=== PATIENT | female | born 1960 | race Caucasian/White ===

== ENCOUNTER → 2020-11-08 16:37 | Outpatient (BNVA) | payer MEDICARE, SELFPAY | PROVIDERS: PCP Nurse Practitioner Family; Visit Provider Nurse Practitioner Family | DX: R30.0 Dysuria (principal); R82.90 Unspecified abnormal findings in urine; I10 Essential (primary) hypertension; E53.8 Deficiency of other specified B group vitamins; E55.9 Vitamin D deficiency, unspecified | CPT/HCPCS: 81003; 87077; 87086; 87184 ==

== ENCOUNTER → 2020-11-19 15:11 | Outpatient (BNVA) | payer MEDICARE, SELFPAY | PROVIDERS: PCP Nurse Practitioner Family; Visit Provider Family Medicine | DX: R30.0 Dysuria (principal); N20.0 Calculus of kidney; L40.50 Arthropathic psoriasis, unspecified; R39.9 Unspecified symptoms and signs involving the genitourinary system | CPT/HCPCS: 81003 ==

== ENCOUNTER 2020-11-23 06:00 | Outpatient (CLI) | payer MEDICARE, SELFPAY | END 2020-11-23 06:01 | disposition home or self-care (01) | LOC: LAB 08-18 15:08 | PROVIDERS: PCP Nurse Practitioner Family; Visit Provider Nurse Practitioner Family | DX: I10 Essential (primary) hypertension (principal); E55.9 Vitamin D deficiency, unspecified | CPT/HCPCS: 80053; 80061; 82306; 82607; 84443; 85025 ==

== ENCOUNTER → 2020-12-17 14:52 | Outpatient (BNVA) | payer MEDICARE, SELFPAY | PROVIDERS: PCP Nurse Practitioner Family; Visit Provider Nurse Practitioner Family | DX: R30.0 Dysuria (principal) | CPT/HCPCS: 81003 ==

== ENCOUNTER → 2021-01-11 14:05 | Outpatient (BNVA) | payer MEDICARE, SELFPAY | PROVIDERS: PCP Nurse Practitioner Family; Visit Provider Internal Medicine | DX: L40.50 Arthropathic psoriasis, unspecified (principal); Z11.59 Encounter for screening for other viral diseases; Z11.1 Encounter for screening for respiratory tuberculosis; M54.50 Low back pain, unspecified; M96.1 Postlaminectomy syndrome, not elsewhere classified; Z87.891 Personal history of nicotine dependence | CPT/HCPCS: 99204 ==

== ENCOUNTER 2021-01-12 12:47 | Outpatient (CLI) | payer MEDICARE, SELFPAY ==
--- NOTE | 2021-01-12 12:59 | XR_ITS ---
WS: [id number] LEFT FOOT: 2 VIEW(S) TECHNIQUE: AP and lateral. HISTORY: M25.50 - Pain in unspecified joint COMPARISON: None available. No acute fracture or dislocation. Normal tarsal/metatarsal alignment. Mild hallux valgus of the first metatarsophalangeal joint. Mild osteopenia. No erosions. XR/XR foot LT 2V [id number] IMPRESSION: Mild hallux valgus deformity. No erosions.
--- NOTE | 2021-01-12 12:59 | XR_ITS ---
WS: [id number] Lateral views of cervical spine in the flexion, extension and neutral positions. 01/12/2021 Clinical Data: L40.50 - Arthropathic psoriasis, unspecified Comparison: None. Findings: Osteoarthritis of the vertebral bodies from C2 through C7 is seen. There is a fusion of the disc spac e between C1 and C2. No compression fractures are noted. There is degenerative disc narrowing from C2 -3 through C6-C7. No prevertebral soft tissue swelling is seen. On flexion and extension there is mil d limitation of motion but no subluxation. XR/XR cervical spine fl/ex [id number] Impression: 1. Osteoarthritis and degenerative disc disease from C2 through C7. 2. Fusion of the C1-C2 vertebral bodies. 3. Slight limitation of motion on flexion and extension.
--- NOTE | 2021-01-12 12:59 | XR_ITS ---
WS: [id number] Right hand, 2 views, 01/12/2021 Clinical Data: L40.50 - Arthropathic psoriasis, unspecified Comparison: None. Findings: No new fractures or dislocations are seen. The soft tissues are unremarkable. There is osteoarthritic change at the base of the right first metacarpal and a flexion deformity of t he right first MCP joint. No periarticular calcifications are seen. There is diffuse demineralization of the bones of the right hand. There is a healed fracture of the distal right ulna. XR/XR hand RT 2V [id number] Impression: 1. Diffuse demineralization of the right hand. 2. Osteoarthritic change of the base of the right first metacarpal.
--- NOTE | 2021-01-12 12:59 | XR_ITS ---
WS: [id number] Lumbar spine, 3 views, 01/12/2021 Clinical Data: L40.50 - Arthropathic psoriasis, unspecified Comparison: None. Findings: Extensive posterior lumbar fusion with bilateral pedicle screws and connecting rods from L2 through S 1 is seen. There is artificial disc material at L2-L3, L3-L4 and L4-L5. The patient has had an anter ior fusion of L4-L5 with 4 oblique screws. There is also an anterior fusion at L5-S1 with bilateral screws and a plate. The transverse processes and SI joints are nonremarkable. Osteoarthritic spurring from T11 through L1 is noted. No compression fractures are seen. XR/XR lumbar spine 2-3V* [id number] Impression: 1. Extensive intact anterior and posterior lumbar fusion. 2. Osteoarthritis from T11 through L1 vertebral bodies.
--- NOTE | 2021-01-12 12:59 | XR_ITS ---
WS: [id number] Right foot, 2 views, 01/12/2021 Clinical Data: M25.50 - Pain in unspecified joint Comparison: None. Findings: No fractures or dislocations are seen. No bone destruction or erosion is noted. There is a bunion of the head of the right first metatarsal.No periarticular demineralization or calcifications are seen. There is a plantar spur. XR/XR foot RT 2V [id number] Impression: Bunion of the head of the right first metatarsal.
--- NOTE | 2021-01-12 12:59 | XR_ITS ---
WS: [id number] Left hand, 2 views, 01/12/2021 Clinical Data: L40.50 - Arthropathic psoriasis, unspecified Comparison: None. Findings: No new fractures or dislocations are seen. The soft tissues are unremarkable. There is a flexion deformity of the left first MCP joint. There is minimal osteoarthritis of the left second finger DIP joint. There is an old fracture of the distal left radius. Diffuse demineralizatio n of the bones of the left hand is seen. XR/XR hand LT 2V [id number] Impression: 1. Demineralization of the bones of the left hand. 2. Osteoarthritis of the DIP joint of the left second finger.
[2021-01-12 13:57] LABS: Basophils # 0.1 10^3/uL (0.0-0.1); Basophils % 0.8 %; Eosinophils # 0.4 10^3/uL (0.0-0.8); Eosinophils % 4.6 %; Hematocrit 45.2 % (37.0-47.0); Lymphocytes # 3.3 10^3/uL (0.8-4.8); Lymphocytes % 42.2 %; Mean Corpuscular HGB Conc 33.2 g/dL (30.0-36.0); Mean Corpuscular Hemoglobin 29.9 pg (28.0-34.0); Mean Corpuscular Volume 90.2 fl (81-99); Mean Platelet Volume 10.1 fL (7.4-10.4); Monocytes # 0.5 10^3/uL (0.2-0.9); Monocytes % 6.8 %; Neutrophils # 3.58 10^3/uL (1.8-7.7); Neutrophils % 45.3 %; Nucleated Red Blood Cells % 0 %; Platelet Count 265 10^3/cmm (130-400); Red Blood Count 5.01 10^6/uL (4.1-5.3); Red Cell Distribution Width 12.6 % (12.1-15.1); White Blood Count 7.9 10^3/uL (4.0-10.0)
[2021-01-12 14:25] LABS: Alanine Aminotransferase 30 U/L (0-33); Albumin Level 4.6 g/dL (3.5-5.2); Alkaline Phosphatase 82 IU/L (35-105); Anion Gap 17.7 (5-19); Aspartate Amino Transferase 23 U/L (0-32); Blood Urea Nitrogen 8 mg/dL (8-23); Carbon Dioxide 23 mmol/L (22-29); Chloride 103 mmol/L (98-107); Globulin 3.9 g/dL (1.3-4.6); Glomerular Filtration Rate 72.7 mL/min (90-130); Glucose 98 mg/dL (65-115); Osmolality Calculated 288 mOsm/kg (285-295); Potassium 3.7 mmol/L (3.5-5.1); Sodium 140 mmol/L (136-145); Total Bilirubin 0.4 mg/dL (0.15-1.2); Total Protein 8.5 g/dL (6.6-8.7)
[2021-01-12 14:41] LABS: Hepatitis B Core AB, Total Non-Reactive (Nonreactive); Hepatitis B Surface Antigen Non-Reactive (Nonreactive); Hepatitis C Virus Antibody Non-Reactive (Nonreactive)
[2021-01-14 15:23] LABS: Quantiferon Mitogen 8.99 IU/mL; Quantiferon Nil 0.02 IU/mL; Quantiferon Plus TB1 0.06 IU/mL; Quantiferon Plus TB2 0.07 IU/mL; Quantiferon TB Gold NEGATIVE (NEGATIVE)
== END 2021-01-12 12:48 | disposition home or self-care (01) ==
LOC: RAD 12:57
PROVIDERS: PCP Nurse Practitioner Family; Visit Provider Internal Medicine
DX: L40.50 Arthropathic psoriasis, unspecified (principal); M25.50 Pain in unspecified joint; Z11.59 Encounter for screening for other viral diseases; Z11.1 Encounter for screening for respiratory tuberculosis
CPT/HCPCS: 36415; 72040; 72100; 73120; 73620; 80053; 85025; 86480; 86704; 86803; 87340

== ENCOUNTER → 2021-02-23 11:03 | Outpatient (BNVA) | payer MEDICARE, SELFPAY | PROVIDERS: PCP Nurse Practitioner Family; Visit Provider Nurse Practitioner Family | DX: R30.0 Dysuria (principal); R82.90 Unspecified abnormal findings in urine; N30.01 Acute cystitis with hematuria; Z68.30 Body mass index [BMI] 30.0-30.9, adult | CPT/HCPCS: 81000; 87077; 87086; 87184 ==

== ENCOUNTER → 2021-03-08 15:01 | Outpatient (BNVA) | payer MEDICARE, SELFPAY | PROVIDERS: PCP Nurse Practitioner Family; Visit Provider Nurse Practitioner Family | DX: R30.0 Dysuria (principal) | CPT/HCPCS: 81000 ==

== ENCOUNTER → 2021-03-11 11:01 | Outpatient (BNVA) | payer MEDICARE, SELFPAY | PROVIDERS: PCP Nurse Practitioner Family; Visit Provider Nurse Practitioner Family | DX: M25.561 Pain in right knee (principal); M25.562 Pain in left knee; G89.29 Other chronic pain; M17.11 Unilateral primary osteoarthritis, right knee | CPT/HCPCS: 73562 ==

== ENCOUNTER → 2021-04-11 10:59 | Outpatient (BNVA) | payer MEDICARE, SELFPAY | PROVIDERS: PCP Nurse Practitioner Family; Visit Provider Anesthesiology Pain Medicine | DX: G89.29 Other chronic pain (principal); M47.812 Spondylosis without myelopathy or radiculopathy, cervical region; M96.1 Postlaminectomy syndrome, not elsewhere classified; M50.31 Other cervical disc degeneration, high cervical region; M25.561 Pain in right knee; M25.562 Pain in left knee; Z87.891 Personal history of nicotine dependence | CPT/HCPCS: 99205 ==

== ENCOUNTER → 2021-04-19 09:30 | Outpatient (BNVA) | payer MEDICARE, SELFPAY | PROVIDERS: PCP Nurse Practitioner Family; Visit Provider Family Medicine | DX: R30.0 Dysuria (principal); R82.90 Unspecified abnormal findings in urine; R31.9 Hematuria, unspecified | CPT/HCPCS: 81003; 87077; 87086; 87184 ==

== ENCOUNTER → 2021-04-25 11:55 | Outpatient (BNVA) | payer MEDICARE, SELFPAY | PROVIDERS: PCP Nurse Practitioner Family; Visit Provider Nurse Practitioner Family | DX: N39.0 Urinary tract infection, site not specified (principal); N20.2 Calculus of kidney with calculus of ureter | CPT/HCPCS: 81003; 87086 ==

== ENCOUNTER → 2021-04-27 11:47 | Outpatient (BNVA) | payer MEDICARE, SELFPAY | PROVIDERS: PCP Nurse Practitioner Family; Visit Provider Registered Nurse Neonatal Intensive Care | DX: Z20.822 Contact with and (suspected) exposure to COVID-19 (principal) | CPT/HCPCS: 87635 ==

== ENCOUNTER → 2021-05-16 14:20 | Outpatient (BNVA) | payer MEDICARE, SELFPAY | PROVIDERS: PCP Nurse Practitioner Family; Visit Provider Internal Medicine | DX: L40.50 Arthropathic psoriasis, unspecified (principal); M54.50 Low back pain, unspecified; M96.1 Postlaminectomy syndrome, not elsewhere classified; Z86.16 Personal history of COVID-19; Z87.891 Personal history of nicotine dependence | CPT/HCPCS: 99214 ==

== ENCOUNTER 2021-05-17 15:16 | Outpatient (CLI) | payer MEDICARE, SELFPAY ==
--- NOTE | 2021-05-17 15:20 | XR_ITS ---
WS: [id number] XR KUB [id number] REASON FOR EXAM: stones FINDINGS: Large amount of stool and gas in the colon. No calculi are identified in the region of the kidneys, ureter, or bladder. Extensive surgical instrumentation of the lumbar spine. XR/XR KUB [id number] IMPRESSION: No urinary tract calculi identified.
== END 2021-05-17 15:17 | disposition home or self-care (01) ==
LOC: RAD 15:20
PROVIDERS: PCP Nurse Practitioner Family; Visit Provider Urology
DX: N20.2 Calculus of kidney with calculus of ureter (principal)
CPT/HCPCS: 74018; 81003

== ENCOUNTER 2021-06-15 23:24 | Emergency (ER) | payer MEDICARE, SELFPAY ==
--- NOTE | 2021-06-15 23:39 | ED_ITS ---
HPI - URI/Sore Throat General: Chief Complaint: Shortness of Breath/Dyspnea Stated Complaint: Covid Symptoms Time Seen by Provider: 06/15/21 23:39 History of Present Illness: 60-year-old female comes in today with complaints of fatigue, epigastric abdominal discomfort, shortness of breath and cough. Patient has been ill since 29 May after being diagnosed with COVID-19. Patient reports continues to have absent taste but comes in today due to her increased abdominal discomfort. Patient does have a history of psoriasis, depression, recurrent UTI, obesity. Patient is presently on doxycycline. Patient appears mildly unwell but not toxic. Patient appears in no pain. Associated symptoms: Reports abdominal pain Review of Systems General: Reports: 10 or more systems reviewed and unremarkable except in HPI and below Resp: Reports: dyspnea GI: Reports: abdominal pain PFSH ED PFSH: Medical History (Updated 06/16/21 @ 01:11 by ROSSY Holden) Chronic cystitis Fibromyalgia Hypothyroidism Urolithiasis Surgical History History of appendectomy History of back surgery History of rotator cuff surgery Family History Father Diabetes Hyperlipidemia Mother , AT AGE 83 Cancer Social History Smoking and tobacco status: former smoker Alcohol intake: current Alcohol intake frequency: few times a week Alcohol type: beer and wine Marital status: Current occupational status: disabled History of recent travel: No Physical Exam Const: COMMON NORMALS: alert HENMT: COMMON NORMALS: normocephalic and Normal external nose present HEAD & SCALP: normocephalic NOSE: Normal external nose present Eye: COMMON NORMALS: Equal, round and reactive pupils present and EOMs intact bilaterally PUPIL: Yes Equal, round and reactive pupils present Resp: COMMON NORMALS: clear to auscultation bilaterally EFFORT & INSPECTIO N: Yes tachypneic AUSCULTATION: clear to auscultation bilaterally Cardio: COMMON NORMALS: regular rate and regular rhythm RATE: regular rate RHYTHM: regular rhythm GI: AUSCULTATION: Yes normoactive bowel sounds PALPATION: Yes Tenderness to palpation present (GI) (epigastric) : COMMON NORMALS: Yes no CVA tenderness BLADDER/KIDNEY EXAM: Yes no CVA tenderness Back/Pelvis: COMMON NORMALS: no CVA tenderness Extremity: COMMON NORMALS: no pedal edema Neuro: SENSORIUM/ORIENTATION: Yes alert Psych: COMMON NORMALS: cooperative Skin: COMMON NORMALS: no rashes or lesions noted GENERAL SKIN EXAM: no rashes or lesions noted Course Vital Signs: Vital signs: Vital Signs Temperature 98.8 F 06/15/21 23:46 Pulse Rate 72 06/15/21 23:41 Respiratory Rate 18 06/15/21 23:41 Blood Pressure 186/92 06/15/21 23:41 Pulse Oximetry 100 06/15/21 23:41 MDM - URI/Sore Throat Medical Decision Making 60-year-old female comes in today with complaints of epigastric discomfort and increased shortness of breath. Patient's been ill with COVID-19 since 29 May. Patient appears in no acute distress. Lungs are decreased in the bases. Skin is warm and dry. Patient has tenderness in epigastric region of the abdomen on palpation. Bowel sounds are present. Vital signs are normal exc ept for some elevation in blood pressure. Differential diagnosis includes pneumonia, COVID-19, pancreatitis, gastritis. Laboratory values noted a white count of 12,000, CMP was unremarkable, lipase was normal, D-dimer was elevated at 5.08. Chest x-ray noted mild left side basilar atelectasis. CTA was performed of the chest and abdomen, no PE was noted but groundglass opacities was noted on the CT of the chest suggesting a Covid type pneumonia, duodenitis was noted in the abdomen. We have patient has duodenitis may be due to her prolonged Covid illness, we will treat with pantoprazole. Patient will continue with her antibiotics as directed. Recommend drink plenty of fluids and follow-u p with primary care in 1 week for recheck. Patient reported understanding and agreed to plan. Lab Data : 06/16/21 00:01 06/16/21 00:01 Radiology Impressions Chest X-Ray 06/15/21 23:45 IMPRESSION: Mild left basilar atelectasis and/or pneumonia. Chest/Abdomen/Pelvis CT 06/16/21 00:30 IMPRESSION: 1. Mild geographic ground-glass opacities in the lungs bilaterally consistent with mild bilateral COVID-19 pneumonia versus other pneumonia. 2. Severe calcified coronary artery disease. 3. No pulmonary embolus or aortic dissection. IMPRESSION: Moderate bowel wall thickening in the 1st and 2nd portion of duodenum suggesting moderate primary duodenitis versus pancreatitis with secondary duodenitis. Laboratory Results WBC 12.3 10^3/uL (4.0-10.0) H 06/16/21 00:01 RBC 4.75 10^6/uL (4.1-5.3) 06/16/21 00:01 Hgb 13.9 g/dL (11.5-15.3) 06/16/21 00:01 Hct 42.4 % (37.0-47.0) 06/16/21 00:01 MCV 89.3 fl (81-99) 06/16/21 00:01 MCH 29.3 pg (28.0-34.0) 06/16/21 00:01 MCHC 32.8 g/dL (30.0-36.0) 06/16/21 00: RDW 13.8 % (12.1-15.1) 06/16/21 00:01 Plt Count 435 10^3/cmm (130-400) H 06/16/21 00:01 MPV 10.0 fL (7.4-10.4) 06/16/21 00:01 Neut % (Auto) 64.6 % 06/16/21 00:01 Lymph % (Auto) 26.3 % 06/16/21 00: Nobles % (Auto) 6.9 % 06/16/21 00: Eos % (Auto) 1.3 % 06/16/21 00:01 Baso % (Auto) 0.3 % 06/16/21 00:01 Neut # (Auto) 7.91 10^3/uL (1.8-7.7) H 06/16/21 00:01 Lymph # (Auto) 3.2 10^3/uL (0.8-4.8) 06/16/21 00:01 Nobles # (Auto) 0.9 10^3/uL (0.2-0.9) 06/16/21 00:01 Eos # (Auto) 0.2 10^3/uL (0.0-0.8) 06/16/21 00:01 Baso # (Auto) 0.0 10^3/uL (0.0-0.1) 06/16/21 00: Nucleated RBC % (auto) 0 % 06/16/21 00: Nucleated RBCs # 0.0 /100WBC 06/16/21 00:01 D-Dimer 5.08 ug/mIFEU (0-0.59) H 06/16/21 00:01 Sodium 140 mmol/L (136-145) 06/16/21 00: Potassium 4.1 mmol/L (3.5-5.1) 06/16/21 00: Chloride 103 mmol/L (98-107) 06/16/21 00: Carbon Dioxide 24 mmol/L (22-29) 06/16/21 00: Anion Gap 17.1 (5-19) 06/16/21 00: BUN 15 mg/dL (8-23) 06/16/21 00:01 Creatinine 0.9 mg/dL (0.5-0.9) 06/16/21 00: GFR Calculation 63.4 mL/min (90-130) L 06/16/21 00: Glucose 155 mg/dL (65-115) H 06/16/21 00: Calculated Osmolality 294 mOsm/kg (285-295) 06/16/21 00: Calcium 9.6 mg/dL (8.5-10.5) 06/16/21 00: Total Bilirubin 0.3 mg/dL (0.15-1.2) 06/16/21 00: AST 12 U/L (0-32) 06/16/21 00: ALT 20 U/L (0-33) 06/16/21 00: Alkaline Phosphatase 78 IU/L (35-105) 06/16/21 00: Troponin T Gen 5 ng/L 17 ng/L (0-10) H 06/16/21 00: Total Protein 6.6 g/dL (6.6-8.7) 06/16/21 00:01 Albumin 4.3 g/dL (3.5-5.2) 06/16/21 00: Globulin 2.3 g/dL (1.3-4.6) 06/16/21 00:01 Lipase 40 U/L (13-60) 06/16/21 00:01 Discharge Plan Discharge Patient Disposition: Home Clinical Impression: COVID-19, Duodenitis Condition: Stable Prescriptions: New pantoprazole 40 mg tablet,delayed release (DR/EC) 40 mg PO QAM 28 Days Qty: 28 0RF No Action amlodipine 5 mg tablet 5 mg PO DAILY 0RF cholecalciferol (vitamin D3) 25 mcg (1,000 unit) capsule 25 mcg PO DAILY 0RF diphenhydramine HCl [Allergy (diphenhydramine)] 25 mg capsule 25 mg PO TID PRN0RF fluocinonide 0.05 % cream 1 applic topical BID 0RF carboxymethylcellulose sodium [Refresh Tears] 0.5 % drops 1 drp ophthalmic (eye) BID 0RF apple cider vinegar PO PRN0RF mecobalamin (vitamin B12) 1,000 mcg tablet,disintegrating 1,000 mcg sublingual DAILY 0RF Rx Instructions: place tablet under tongue and allow to dissolve for at least30 secs before swallowing [employer] Autoinjector (3 Pack) 80 mg/mL auto-injector See Rx Instructions SUBCUT .COMPLEX Qty: 3 1RF Rx Instructions: starter dose two 80mg injection on same then, then 1 injection q 4 weeks LIRA BCUT; clobetasol 0.05 % cream 1 applic topical DAILY Qty: 60 0RF bupropion HCl 150 mg tablet sustained-release 12 hr 150 mg PO DAILY Qty: 90 1RF duloxetine 60 mg capsule,delayed release(DR/EC) 60 mg PO DAILY Qty: 90 1RF ibuprofen 800 mg tablet 800 mg PO Q8H PRN (Reason: pain) Qty: 90 0RF dexamethasone [Decadron] 6 mg tablet 6 mg PO DAILY Qty: 10 0RF silver sulfadiazine 1 % cream 1 applic topical DAILY Qty: 50 0RF Rx Instructions: apply a 1.5 mm thickness ondansetron HCl [Zofran] 4 mg tablet 4 mg PO Q8H Qty: 30 0RF tramadol 50 mg tablet 50 mg PO Q8H PRN (Reason: pain) Qty: 12 0RF metoprolol tartrate 25 mg tablet See Rx Instructions .ROUTE .COMPLEX Qty: 60 5RF Dose Instruction: TAKE ONE TABLET BY MOUTH TWICE A DAY Rx Instructions: TAKE ONE TABLET BY MOUTH TWICE A DAY levothyroxine 25 mcg capsule 25 mcg PO DAILY Qty: 30 5RF trazodone 100 mg tablet 100 mg PO DAILY Qty: 30 5RF pregabalin 50 mg capsule 50 mg PO TID Qty: 90 2RF cefuroxime axetil 500 mg tablet 500 mg PO BID Qty: 60 2RF doxycycline hyclate 100 mg capsule 100 mg PO BID Qty: 60 2RF Discharge Orders: Discharge ED (Routine); Ordered 06/16/21 Ordered By: Hector Jarvis Referrals: Yudith Mckeon NP [Primary Care Provider] - Discharge Diet: Advance as tolerated Discharge Activity: Increase activity as tolerated Patient Instructions: Duodenitis (ED) Activity Restrictions/Additional Instructions: Light diet. Avoid spicy, greasy, and acidic foods. Drink plenty of water with medication. Follow-up with primary care in 1 week for recheck. Return to ER for high fever greater than 100.4, increasing shortness of breath, or new concerns. Coding Level of Care Code ED [employer] for [employer] F[employer] Exam Comprehensive
[2021-06-15 23:41] VITALS: BP 186/92; PULSE 72; RESP 18; O2SAT 100; BMI 29.2
--- NOTE | 2021-06-15 23:45 | XRR_ITS ---
PROCEDURE INFORMATION: Exam: XR Chest Exam date and time: 06/15/2021 11:45 PM Age: 60 years old Clinical indication: Cough and shortness of breath; Prior surgery; Patient HX: Patient diagnosed with covid in April. C/O persistent cough with SOB. ; Additional info: Dyspnea TECHNIQUE: Imaging protocol: XR of the chest. Views: 1 view. COMPARISON: CR XR KUB [id number] 05/17/2021 3:27 PM FINDINGS: Lungs: Mild left basilar atelectasis and/or pneumonia. Pleural spaces: Unremarkable. No pleural effusion. No pneumothorax. Heart/Mediastinum: Unremarkable. No cardiomegaly. Bones/joints: Total right shoulder replacement. Other findings: Postoperative changes over the lumbar spine with metallic fixation and metallic artifact. XR/XR chest 1V portable [id number] IMPRESSION: Mild left basilar atelectasis and/or pneumonia.
[2021-06-15 23:46] VITALS: TEMP 37.1
[2021-06-16 00:08] LABS: Basophils % 0.3 %; Eosinophils # 0.2 10^3/uL (0.0-0.8); Eosinophils % 1.3 %; Hematocrit 42.4 % (37.0-47.0); Hemoglobin 13.9 g/dL (11.5-15.3); Lymphocytes # 3.2 10^3/uL (0.8-4.8); Lymphocytes % 26.3 %; Mean Corpuscular HGB Conc 32.8 g/dL (30.0-36.0); Mean Corpuscular Hemoglobin 29.3 pg (28.0-34.0); Mean Corpuscular Volume 89.3 fl (81-99); Monocytes # 0.9 10^3/uL (0.2-0.9); Monocytes % 6.9 %; Neutrophils # 7.91 10^3/uL (1.8-7.7); Neutrophils % 64.6 %; Nucleated Red Blood Cells % 0 %; Platelet Count 435 10^3/cmm (130-400); Red Blood Count 4.75 10^6/uL (4.1-5.3); Red Cell Distribution Width 13.8 % (12.1-15.1); White Blood Count 12.3 10^3/uL (4.0-10.0)
[2021-06-16 00:26] LABS: Troponin T (5th) Once 17 ng/L (0-10)
[2021-06-16 00:28] LABS: Alanine Aminotransferase 20 U/L (0-33); Albumin Level 4.3 g/dL (3.5-5.2); Alkaline Phosphatase 78 IU/L (35-105); Anion Gap 17.1 (5-19); Aspartate Amino Transferase 12 U/L (0-32); Blood Urea Nitrogen 15 mg/dL (8-23); Calcium 9.6 mg/dL (8.5-10.5); Carbon Dioxide 24 mmol/L (22-29); Chloride 103 mmol/L (98-107); Creatinine Clr Calc Pharmacy 62.6525; Globulin 2.3 g/dL (1.3-4.6); Glomerular Filtration Rate 63.4 mL/min (90-130); Glucose 155 mg/dL (65-115); Lipase 40 U/L (13-60); Osmolality Calculated 294 mOsm/kg (285-295); Potassium 4.1 mmol/L (3.5-5.1); Sodium 140 mmol/L (136-145); Total Bilirubin 0.3 mg/dL (0.15-1.2); Total Protein 6.6 g/dL (6.6-8.7)
[2021-06-16 00:29] LABS: D Dimer 5.08 ug/mIFEU (0-0.59)
--- NOTE | 2021-06-16 00:30 | CTR_ITS ---
PROCEDURE INFORMATION: Exam: CTA Chest With Contrast Exam date and time: 06/16/2021 12:30 AM Age: 60 years old Clinical indication: Abdominal pain; Generalized; Cough and shortness of breath; Other: N/a; Prior surgery; Surgery type: Total shoulder. Lumbar fusion. Appy. ; Patient HX: C/O cough with SOB and abd pain with nausea. Positive for covid in April of 2021. ; Additional info: Dyspnea, elevated d-dimer, abd pain TECHNIQUE: Imaging protocol: Computed tomographic angiography of the chest with contrast. 3D rendering (Not supervised by radiologist): MIP and/or 3D reconstructed images were created by the technologist. Radiation optimization: All CT scans at this facility use at least one of these dose optimization techniques: automated exposure control; mA and/or kV adjustment per patient size (includes targeted exams where dose is matched to clinical indication); or iterative reconstruction. Contrast material: OMNI 350; Contrast volume: 95 ml; Contrast route: INTRAVENOUS (IV); COMPARISON: CR (CHEST, ) 06/15/2021 11:50 PM RADIATION DOSE METRICS: Total DLP (mGy-cm): 1166.89 FINDINGS: Pulmonary arteries: No pulmonary embolus or aortic dissection. Aorta: Calcification of the thoracic aorta and/or great vessels consistent with atherosclerotic vessel disease. Lungs: Right discoid atelectasis and/or scarring. Mild geographic ground-glass opacities in the lungs bilaterally consistent with mild bilateral COVID-19 pneumonia versus other pneumonia. Pleural spaces: Unremarkable. No pneumothorax. No pleural effusion. Heart: Severe calcified coronary artery disease. Lymph nodes: Shotty mediastinal adenopathy which is within normal limits by CT criteria. Bones/joints: Unremarkable. No acute fracture. Soft tissues: Unremarkable. PROCEDURE INFORMATION: Exam: CT Abdomen And Pelvis With Contrast Exam date and time: 06/16/2021 12:30 AM Age: 60 years old Clinical indication: Abdominal pain; Generalized; Cough and shortness of breath; Other: N/a; Prior surgery; Surgery type: Total shoulder. Lumbar fusion. Appy. ; Patient HX: C/O cough with SOB and abd pain with nausea. Positive for covid in April of 2021. ; Additional info: Dyspnea, elevated d-dimer, abd pain TECHNIQUE: Imaging protocol: Computed tomography of the abdomen and pelvis with contrast. Radiation optimization: All CT scans at this facility use at least one of these dose optimization techniques: automated exposure control; mA and/or kV adjustment per patient size (includes targeted exams where dose is matched to clinical indication); or iterative reconstruction. Contrast material: OMNI 350; Contrast volume: 95 ml; Contrast route: INTRAVENOUS (IV); COMPARISON: CR (CHEST, ) 06/15/2021 11:50 PM RADIATION DOSE METRICS: Total DLP (mGy-cm): 1166.89 FINDINGS: Liver: Normal. No mass. Gallbladder and bile ducts: Normal. No calcified stones. No ductal dilation. Pancreas: See Stomach and bowel finding. Spleen: Normal. No splenomegaly. Adrenal glands: Normal. No mass. Kidneys and ureters: Normal. No hydronephrosis. Stomach and bowel: Moderate bowel wall thickening in the 1st and 2nd portion of duodenum suggesting moderate primary duodenitis versus pancreatitis with secondary duodenitis. Appendix: No evidence of appendicitis. Intraperitoneal space: Unremarkable. No free air. No significant fluid collection. Vasculature: Unremarkable. No abdominal aortic aneurysm. Lymph nodes: Unremarkable. No enlarged lymph nodes. Urinary bladder: Unremarkable as visualized. Reproductive: Unremarkable as visualized. Bones/joints: Postoperative changes over the lumbar spine with metallic fixation and metallic artifact. Soft tissues: Unremarkable. CT/CT angio chest w abd pel w con IMPRESSION: 1. Mild geographic ground-glass opacities in the lungs bilaterally consistent with mild bilateral COVID-19 pneumonia versus other pneumonia. 2. Severe calcified coronary artery disease. 3. No pulmonary embolus or aortic dissection. IMPRESSION: Moderate bowel wall thickening in the 1st and 2nd portion of duodenum suggesting moderate primary duodenitis versus pancreatitis with secondary duodenitis.
[2021-06-16] MEDS: iohexol 350 mg/mL 100 mL Btl IV (00:42)
[2021-06-16] MEDS: ondansetron 4 MG Tablet PO (00:54)
[2021-06-16] MEDS: pantoprazole 40 mg SDV IVP (02:09)
[2021-06-16 02:10] VITALS: BP 167/81; PULSE 81; RESP 18; TEMP 36.8; O2SAT 96
== END 2021-06-16 02:13 | disposition home or self-care (01) ==
PROVIDERS: Emergency Provider Nurse Practitioner Family; PCP Nurse Practitioner Family
DX: U07.1 COVID-19 (principal); K29.80 Duodenitis without bleeding; Z87.891 Personal history of nicotine dependence
CPT/HCPCS: 71045; 71275; 74177; 80053; 83690; 84484; 85025; 85378; 96374; 99283; C9113; Q0162; Q9967

== ENCOUNTER 2021-07-16 21:58 | Emergency (ER) | payer MEDICARE, SELFPAY ==
--- NOTE | 2021-07-16 22:00 | XRR_ITS ---
PROCEDURE INFORMATION: Exam: XR Left Wrist Exam date and time: 07/16/2021 10:11 PM Age: 60 years old Clinical indication: Injury or trauma; Fall; Blunt trauma (contusions or hematomas); Wrist; Left TECHNIQUE: Imaging protocol: XR Left wrist. Views: 3 or more views. COMPARISON: No relevant prior studies available. FINDINGS: Bones/joints: There are severely comminuted fractures of the distal radius and ulna with impaction and posterior displacement. There is slight apex anterior angulation. No dislocation. Minimal degenerative changes of the 1st CMC and 1st MCP joints. Soft tissues: Normal. Other findings: Three views submitted. XR/XR wrist LT min 3V* [id number] IMPRESSION: Distal radius and ulna fractures as described.
[2021-07-16 22:04] VITALS: BP 176/98; PULSE 86; RESP 26; TEMP 36.3; O2SAT 99; BMI 29.6
[2021-07-16 22:07] VITALS: BP 197/102; PULSE 79; RESP 18; O2SAT 97
[2021-07-16 22:17] VITALS: RESP 18
[2021-07-16] MEDS: morphine 4 mg/mL SDV 1 mL IM (22:17)
--- NOTE | 2021-07-16 22:21 | W.ED.EXTPRO ---
HPI - Extremity Problem General: Chief complaint: Extremity Injury, Upper Stated complaint: L wrist injury Time Seen by Provider: 07/16/21 22:01 Source: patient Mode of arrival: ambulatory Limitations: no limitations History of Present Illness: 60-year-old female who states she was skating at [employer] tonight and fell landed on her left arm outstretched. She has obvious deformity to left wrist has pain in that wrist. She denies hitting her head denies any injuries elsewhere denies pain elsewhere. She able to move her fingers. States her pain is currently a 6 out of 10. Associated symptoms: Deny chest pain, fever(s) or rash Review of Systems Const: Denies: fever(s), chills, body aches or change in appetite Eyes: Denies: blurry vision or eye discomfort ENMT: Denies: throat pain or dental pain Card: Denies: chest pain Resp: Denies: dyspnea GI: Denies: abdominal pain, nausea, vomiting or diarrhea : Denies: dysuria Musc: Reports: extremity pain Skin/Breast: Denies: rash Neuro: Denies: headache(s) Psych: Denies: depression Ludin/Lymph: Denies: easy bruising All/Imm: Denies: urticaria PFSH ED PFSH: Medical History Chronic cystitis Fibromyalgia Hypothyroidism Urolithiasis Surgical History History of appendectomy History of back surgery History of rotator cuff surgery Family History Father Diabetes Hyperlipidemia Mother , AT AGE 83 Cancer Social History Smoking and tobacco status: heavy tobacco smoker Alcohol intake: current Alcohol intake frequency: few times a week Alcohol type: beer and wine Marital status: Current occupational status: disabled History of recent travel: No Physical Exam Const: COMMON NORMALS: no acute distress, patient oriented x3 and healthy appearing HENMT: COMMON NORMALS: normocephalic and atraumatic HEAD & SCALP: normocephalic and atraumatic Eye: COMMON NORMALS: Equal, round and reactive pupils present and EOMs intact bilaterally PUPIL: Yes Equal, round and reactive pupils present Neck/C-Spine: COMMON NORMALS: full ROM and supple Chest: COMMONS NORMALS: normal inspection of the chest and normal palpation of entire chest wall Resp: COMMON NORMALS: normal respiratory effort, No retractions, No use of accessory muscles and clear to auscultation bilaterally AUSCULTATION: clear to auscultation bilaterally Cardio: COMMON NORMALS: regular rate, regular rhythm and No murmurs present (Cardio) RATE: regular rate RHYTHM: regular rhythm GI: COMMON NORMALS: Normal to inspection, nondistended, normoactive bowel sounds present, Soft to palpation, non-tender and no masses PALPATION: Yes Soft to palpation Extremity: NARRATIVE EXTREMITY EXAM: Obvious deformity to left wrist distal pulses sensation intact Neuro: COMMON NORMALS: patient oriented x3, moves all extremities and no focal motor deficits Psych: COMMON NORMALS: mental status grossly normal, Normal thought process present and cooperative THOUGHT PROCESS: Normal thought process present Skin: COMMON NORMALS: no rashes or lesions noted and no wounds GENERAL SKIN EXAM: no rashes or lesions noted Procedures Orthopedic Fracture Reduction Fracture #1: Time Out Performed: Yes Side: left Fracture Reduction Location: radius and ulna Analgesia: procedural sedation Technique: direct manipulation Post Reduction X-rays Demonstrate: anatomical reduction Post-reduction neuro exam: intact Post-reduction vascular exam: intact Splint Applied: Yes Patient Tolerated Procedure: well Orthopedic Splinting/Casting Injury #1: Side: left Upper Extremity Injury Location: wrist Upper Extremity Immobilizer: sugar tong splint Procedural Sedation Indication: fracture/dislocation reduction ASA Class: II Time of Last PO Intake: 19:00 Preparation: panel monitor applied and pulse oximeter IV Propofol dose (mg): 90 Patient Tolerated Procedure: well Complications: none Course Vital Signs: Vital signs: Vital Signs Temperature 97.4 F L 07/16/21 22:04 Pulse Rate 86 07/16/21 22:04 Respiratory Rate 18 07/16/21 22:17 Blood Pressure 176/98 07/16/21 22:04 Pulse Oximetry 99 07/16/21 22:04 MDM - Extremity (Nontraumatic) Medical Decision Making Patient presents here with a Colles' fracture from a fall patient was sedated and had it reduced with good alignment we will get follow with orthopedics she is prescribed [place] she is return if worsening. No other injuries noted Discharge Plan Discharge Patient Disposition: Home Clinical Impression: Fracture of wrist Qualifiers: Encounter type: initial encounter Fracture type: closed Laterality: left Qualified Code(s): S62.102A - Fracture of unspecified carpal bone, left wrist, initial encounter for closed fracture Condition: Stable Prescriptions: New hydrocodone-acetaminophen 5-325 mg tablet 1 tab PO Q6H PRN (Reason: pain) Qty: 14 0RF No Action amlodipine 5 mg tablet 5 mg PO DAILY 0RF cholecalciferol (vitamin D3) 25 mcg (1,000 unit) capsule 25 mcg PO DAILY 0RF diphenhydramine HCl [Allergy (diphenhydramine)] 25 mg capsule 25 mg PO TID PRN0RF fluocinonide 0.05 % cream 1 applic topical BID 0RF carboxymethylcellulose sodium [Refresh Tears] 0.5 % drops 1 drp ophthalmic (eye) BID 0RF apple cider vinegar PO PRN0RF mecobalamin (vitamin B12) 1,000 mcg tablet,disintegrating 1,000 mcg sublingual DAILY 0RF Rx Instructions: place tablet under tongue and allow to dissolve for at least30 secs before swallowing AddIn Social[employer] Autoinjector (3 Pack) 80 mg/mL auto-injector See Rx Instructions SUBCUT .COMPLEX Qty: 3 1RF Rx Instructions: starter dose two 80mg injection on same then, then 1 injection q 4 weeks SUBCUT; clobetasol 0.05 % cream 1 applic topical DAILY Qty: 60 0RF bupropion HCl 150 mg tablet sustained-release 12 hr 150 mg PO DAILY Qty: 90 1RF duloxetine 60 mg capsule,delayed release(DR/EC) 60 mg PO DAILY Qty: 90 1RF dexamethasone [Decadron] 6 mg tablet 6 mg PO DAILY Qty: 10 0RF silver sulfadiazine 1 % cream 1 applic topical DAILY Qty: 50 0RF Rx Instructions: apply a 1.5 mm thickness ondansetron HCl [Zofran] 4 mg tablet 4 mg PO Q8H Qty: 30 0RF tramadol 50 mg tablet 50 mg PO Q8H PRN (Reason: pain) Qty: 12 0RF ibuprofen 800 mg tablet 800 mg PO Q8H PRN (Reason: pain) Qty: 90 0RF metoprolol tartrate 25 mg tablet See Rx Instructions .ROUTE .COMPLEX Qty: 60 5RF Dose Instruction: TAKE ONE TABLET BY MOUTH TWICE A DAY Rx Instructions: TAKE ONE TABLET BY MOUTH TWICE A DAY levothyroxine 25 mcg capsule 25 mcg PO DAILY Qty: 30 5RF trazodone 100 mg tablet 100 mg PO DAILY Qty: 30 5RF pregabalin 50 mg capsule 50 mg PO TID Qty: 90 2RF cefuroxime axetil 500 mg tablet 500 mg PO BID Qty: 60 2RF doxycycline hyclate 100 mg capsule 100 mg PO BID Qty: 60 2RF Discharge Orders: Discharge ED (Routine); Ordered 07/16/21 Ordered By: Amarilys Rogers Referrals: Joseph Zhu DO [Physician] - 1-3 days Yudith Mckeon NP [Primary Care Provider] - Discharge Diet: Advance as tolerated Discharge Activity: Resume usual activity Patient Instructions: Wrist Fracture in Adults (ED) Coding Level of Care Code ED Import/Export Administrator for Nga Fwd Exam Comprehensive
[2021-07-16 22:37] VITALS: BP 173/91; PULSE 98; RESP 18; O2SAT 95
--- NOTE | 2021-07-16 22:45 | XRR_ITS ---
PROCEDURE INFORMATION: Exam: XR Left Wrist Exam date and time: 07/16/2021 10:48 PM Age: 60 years old Clinical indication: Other: Post reduction; Additional info: Post reductioin TECHNIQUE: Imaging protocol: XR Left wrist. Views: 1 or 2 views. COMPARISON: CR (UP EXM, ) 07/16/2021 10:11 PM FINDINGS: Bones/joints: Improved alignment after closed reduction of left distal radius and ulnar fractures with mild residual dorsal displacement and volar apex angulation. Bony demineralization and degenerative bony changes. Soft tissues: Left wrist soft tissue swelling and deformity. XR/XR wrist LT 2V [id number] IMPRESSION: Improved alignment after closed reduction of left distal radius and ulnar fractures with mild residual dorsal displacement and volar apex angulation.
--- NOTE | 2021-07-16 22:59 | PC.NURSE ---
Consent formed signed. Time out at 2242. Dr. Rogers, RT, Billy RN, Lorie RN and Alina MULTANI tech at bedside. 100mg of propofol given. Arm reduced. X-ray confirmed reduction. Sugartong splint placed.
[2021-07-16] MEDS: propofol 10 mg/mL SDV 20 mL 50 MG IVP ×2 (23:06→23:09)
[2021-07-16 23:07] VITALS: BP 145/83; PULSE 87; RESP 18; O2SAT 98
[2021-07-16] MEDS: HYDROcodone-acetaminophen 7.5-325 mg Tablet 1 TAB PO (23:16)
[2021-07-16] MEDS: HYDROcodone-acetaminophen 5-325 mg Tablet 2 TAB PO (23:16)
[2021-07-16 23:36] VITALS: BP 145/83; PULSE 87; RESP 18; O2SAT 98
--- NOTE | 2021-07-18 10:42 | DCPLANNER ---
Addendum entered by Kirsty Banks 08/02/21 20:55: Patient had a follow up appointment scheduled for 07.21.21 at ortho - patient did attend appointment. Addendum entered by Kirsty Banks 07/19/21 07:45: Patient has a follow up appointment scheduled for July at 10:30 with Justo GRESHAM at ortho. Clinic will contact patient with appointment information. Original Note: manager estate had message to schedule a follow up appointment for patient with ortho. manager estate sent patients information to the front staff at the ortho clinic for review. Patients information will be reviewed and printed. Clinic will call patient with appointment information.
== END 2021-07-16 23:39 | disposition home or self-care (01) ==
PROVIDERS: Emergency Provider Emergency Medicine; PCP Nurse Practitioner Family
DX: S52.532A Colles' fracture of left radius, initial encounter for closed fracture (principal); V00.121A Fall from non-in-line roller-skates, initial encounter; Y92.331 Roller skating rink as the place of occurrence of the external cause
CPT/HCPCS: 25605; 73100; 73110; 96372; 99152; 99284; J2270; J2704

== ENCOUNTER → 2021-07-21 10:31 | Outpatient (BNVA) | payer MEDICARE, SELFPAY | PROVIDERS: PCP Nurse Practitioner Family; Referring Provider Emergency Medicine; Visit Provider Physician Assistant | DX: S52.502A Unspecified fracture of the lower end of left radius, initial encounter for closed fracture (principal); S52.602A Unspecified fracture of lower end of left ulna, initial encounter for closed fracture; V00.128A Other non-in-line roller-skating accident, initial encounter | CPT/HCPCS: 73110; 99204; 99999 ==

== ENCOUNTER 2021-07-25 05:40 | Day surgery (SDC) | payer MEDICARE, SELFPAY ==
[2021-07-22 12:35] VITALS: BMI 30.7
[2021-07-25] VITALS (16 sets, daily range): BP systolic 148–184; BP diastolic 76–100; PULSE 62–92; RESP 14–20; TEMP 36.3–37.1; O2SAT 93–100
--- NOTE | 2021-07-25 | SCC_ITS ---
Procedure done: ORIF left extra articular distal radius fracture 21.5 seconds of fluoroscopic guidance, for a cumulative dose of 0.31 mGy, was provided to Dr. Zhu by the radiology department. C-arm images of the LEFT wrist were saved for the patient's permanent record. [facility]
--- NOTE | 2021-07-25 | XR_ITS ---
WS: [id number] Exam: XR wrist LT 2V [id number] Date/Time of Exam: 07/25/2021 12:00 AM Reason For Exam: fx left wrist Comparison 07/21/2021. AP and lateral intraoperative C-arm images of the left wrist are submitted. There is volar plate and screw fixation involving a fracture of the distal radial metaphysis. Alignme nt appears to be satisfactory for healing. There is also a comminuted fracture of the distal metaphys is of the ulna without significant angulation or displacement. XR/XR wrist LT 2V [id number] IMPRESSION: 1. Internal orthopedic fixation involving a fracture of the distal radius in sa tisfactory position for healing. 2. Comminuted fracture of the distal ulna without significant angulation or dis placement.
--- NOTE | 2021-07-25 06:43 | W.PM.OPSUD ---
Surgery/Procedure H&P Update DATE OF PROCEDURE: July 25, 2021 DATE H&P PERFORMED: 07/21/21 H&P UPDATE INFORMATION: I have reviewed H&P completed within last 30 days, I have examined patient prior to procedure and No changes to prior documentation PREOP DIAGNOSIS: Left distal radius fracture PLANNED PROCEDURE: Operation Date: 07/25/21 07:00 Proposed Procedures p ORIF Wrist ORIF Distal Radius 16975/s62.109a(Left) - Joseph Zhu DO
[2021-07-25] MEDS: scopolamine 1.5 Patch 1 PATCH TRANSDERMA (06:45)
[2021-07-25] MEDS: sodium chloride 0.9% 1,000 ML 30 ML IV (06:48)
--- NOTE | 2021-07-25 06:49 | P.ANESASSM_ITS ---
Pre-Anesthetic Assessment Height/Weight: Height 1.42 m Weight 62.142 kg Temp Pulse Resp BP Pulse Ox 97.4 F L 62 18 184/95 99 07/25/21 06:11 07/25/21 06:11 07/25/21 06:11 07/25/21 06:11 07/25/21 06:11 Preop Diagnosis: Left distal radius fracture Operation Date: 07/25/21 07:00 Proposed Procedures p ORIF Wrist ORIF Distal Radius 27960/s62.109a(Left) - Joseph Zhu DO Familial anesthetic complications: None Was Beta Elvia taken within 24 hours: Yes Was Clonidine taken within 24 hours: N/A Last intake: Intake Last Liquid Date 07/24/21 Last Liquid Time 22:30 Last Solid Date 07/24/21 Last Solid Time 17:00 Social No alcohol and No tobacco Former smoker Exam alert, oriented x 3 and regular rate & rhythm Wheezing on expiration left upper lobe Airway Submandibular: within normal limits Cervical ROM: within normal limits Mallampati: Class I Dentition: false Pulmonary Asthma Recent COVID 19 infection in April. Continues to have fatigue CV/HEM Hypertension Chronic cystits Hepatic None reported GI Gastroesophageal Reflux Disease Symptomatic on empty stomach Metabolic Thyroid Disease Musc/skel Fibromyalgia and Rheumatoid Arthritis Neuropsych None reported Anesthetic Plan ASA status: 2 Anesthesia: Anesthesia Evaluation, General and Regional (specify below) Other: We discussed risk and benefits of general anesthesia including PONV, sore throat (sometimes severe), corneal abrasion, positioning and peripheral nerve injuries, life threatening allergic reaction, post operative ICU admission requiring prolonged intubation, stroke, heart attack, , and rare incidences of recall. Patient consents to proceed with general anesthesia. We discussed risk and benefits of nerve block for post op pain control including management of pain and titration of pain medications as signs/symptoms of nerve block wearing off begin to appear and/or prior bed. We discussed risk of failed nerve block, vascular injury or other vital structure injury, abscess/infection, LAST, PTX, and nerve injury. Plan GETA, post op block PRN. Risk of > 500 ml blood loss (7ml/kg in children): No Medications/Allergies Home Medications Medication Instructions Recorded Confirmed Last Taken Type amlodipine 5 mg tablet 5 mg PO DAILY 11/08/20 07/25/21 07/25/21 History carboxymethylcellulose sodium 0.5 1 drp OPHTHALMIC (EYE) BID 11/08/20 07/25/21 Unknown History % eye drops (Refresh Tears) cholecalciferol (vitamin D3) 25 25 mcg PO DAILY 11/08/20 07/25/21 07/24/21 History mcg (1,000 unit) capsule diphenhydramine HCl 25 mg capsule 25 mg PO TID PRN 11/08/20 07/22/21 Unknown History (Allergy (diphenhydramine)) mecobalamin (vitamin B12) 1,000 1,000 mcg SUBLINGUAL DAILY 12/17/20 07/25/21 07/24/21 History mcg disintegrating tablet,sublingual levothyroxine 25 mcg capsule 25 mcg PO DAILY #30 cap 01/24/21 07/25/21 07/25/21 Rx trazodone 100 mg tablet 100 mg PO DAILY #30 tab 01/24/21 07/25/21 07/24/21 Rx clobetasol 0.05 % topical cream 1 applic TOPICAL DAILY #60 g 02/01/21 07/25/21 07/24/21 Rx ixekizumab 80 mg/mL subcutaneous See Rx Instructions SUBCUT 02/01/21 07/25/21 Unknown Rx auto-injector (Vision Criticaltz Autoinjector .COMPLEX #3 ml (3 Pack)) duloxetine 60 mg capsule,delayed 60 mg PO DAILY #90 cap 03/08/21 07/22/21 Unknown Rx release apple cider vinegar 1 caplet PO DAILY PRN 05/16/21 07/22/21 Unknown History doxycycline hyclate 100 mg capsule 100 mg PO BID #60 cap 06/06/21 07/25/21 07/24/21 Rx ibuprofen 800 mg tablet 800 mg PO Q8H PRN #90 tab 06/30/21 07/22/21 Unknown Rx tramadol 50 mg tablet 50 mg PO Q8H PRN #12 tab 06/30/21 07/22/21 Unknown Rx hydrocodone 5 mg-acetaminophen 325 1 tab PO .q 4-6 PRN 5 Days #30 tab 07/21/21 07/25/21 07/24/21 Rx mg tablet bupropion HCl 150 mg tablet,12 hr 150 mg PO DAILY 07/22/21 07/25/21 07/24/21 History sustained-release (Wellbutrin SR) metoprolol tartrate 25 mg tablet 25 mg PO BID 07/22/21 07/25/21 07/24/21 History pregabalin 50 mg capsule (Lyrica) 50 mg PO TID 07/22/21 07/25/21 07/24/21 History Allergies Allergy/AdvReac Type Severity Reaction Status Date / Time adalimumab [From Humira] Allergy ALGY-Hives Verified 07/22/21 12:23 cefuroxime Allergy ALGY-Rash Verified 07/22/21 12:47 naproxen [From Naprosyn] Allergy ALGY-Hives Verified 07/22/21 12:23 prednisone AdvReac Severe Avascular Verified 07/22/21 12:23 Necrosis Current Medications Generic Name Dose Route Start Last Admin Trade Name Freq PRN Reason Stop Dose Admin Sodium Chloride 1,000 mls @ 30 mls/hr 07/25/21 06:00 07/25/21 06:48 Sodium Chloride 0.9% IV 07/26/21 05:59 30 mls/hr .Q24H GALA Administration Scopolamine 1 patch 07/25/21 05:50 07/25/21 06:45 Scopolamine 1.5 Patch TRANSDERMA 1 patch ONCE PRN Administration Nausea/ Vomiting Prophylaxis PFSH Anesthesia Medical History Chronic cystitis Fibromyalgia Hypothyroidism Urolithiasis Surgical History History of appendectomy History of back surgery History of rotator cuff surgery Family History Father Diabetes Hyperlipidemia Mother , AT AGE 83 Cancer Social History Smoking and tobacco status: former smoker Alcohol intake: current Alcohol intake frequency: few times a week Alcohol type: beer and wine Marital status: Current occupational status: disabled History of recent travel: No Data Anesthesia Cardiac Studies: No Data to Display
[2021-07-25] MEDS: clindamycin 600 MG/50 ML PREMIX 100 MG IV (07:02)
--- NOTE | 2021-07-25 08:11 | P.OP_ITS ---
Operative Report Date of procedure: July 25, 2021 Pre-op diagnosis: Preop Diagnosis Left distal radius fracture Post-op diagnosis: same Procedure done: ORIF left extra articular distal radius fracture Surgeon: Joseph Zhu Powder Blender: Justo Cardenas Powder Blender: The assembler surgical garment, Justo Cardenas, DELROY was needed for his expertise in fracture care. He was important and necessary throughout the procedure to complete in a safe and timely manner. He assisted with patient positioning prepping and draping tissue retraction suctioning of the operative field protection of the protection of critical structures and tissue closure Estimated blood loss (mL): 5 Procedure: Patient was brought to the operative suite after undergoing anesthesia was p laced in the supine position all areas impingement well-padded. Patient was prepped and draped normal sterile fashion. Skin incision is made over the left distal radius. The flexor carpi radialis tendon and radial artery were identified this interval split and then the pronator quadratus was reflected ulnarly. Fracture was identified reduced and a Kimberly distal radius plate was placed 2 screws were placed distally 2 screws proximally. Wounds were irrigated AP lateral fluoroscopy ensured that the fracture and hardware were in prepositions. DBX was packed because there was significant comminution and there was some small gaps. At this point the wound was then closed in a layered fashion with Vicryl and Monocryl. Sterile dressings were applied patient was placed in a volar splint transferred to the PACU in stable condition.
[2021-07-25] MEDS: fentaNYL 50 mcg/mL INJ 2mL IVP (08:23)
[2021-07-25] MEDS: HYDROcodone-acetaminophen 5-325 mg Tablet 1 TAB PO (11:47)
--- NOTE | 2021-07-25 14:18 | ANES.PROC ---
Anesthesia Procedures Procedure/Date: 07/25/21 Nerve Block ^: Nerve Block 1: Main Anesthesia: general anesthesia Time Out Performed: Yes Consent: requested by attending/covering physician, from patient, risks and benefits reviewed and patient agrees to proceed Nerve block location: supraclavicular Anesthesia monitors applied: pulse oximetry, EKG, BP cuff and oxygen Nerve block position: semi sitting Anesthetic Used: bupivacaine 0.5% Amount of anesthesia used (mL): 15 Ultrasound used to: recognize landmarks and visualize and ID brachial plexus Nerve Stimulator Used?: No Interscalene/Femoral BLK: 4 stimuplex 21 g needle used for position and inplane approach Injection: neg aspiration of heme Patient Tolerated Procedure: well Complications: none Additional Comments: Patient in acute pain post op. After time out sterile prep, using sterile technique, and using real time US guidance for target selection needle was inserted with real time visualization of needle entry and real time visualization of needle advancement toward intended target. Negative aspiration. LA injected incrementally with negative aspiration every 5 cc and real time US visualization of LA spread throughout procedure. Image(s) saved.
--- NOTE | 2021-07-25 14:22 | ANES.PROC ---
Anesthesia Procedures Procedure/Date: 07/25/21 Nerve Block ^: Nerve Block 1: Main Anesthesia: general anesthesia Time Out Performed: Yes Consent: requested by attending/covering physician, risks and benefits reviewed and patient agrees to proceed Nerve block location: interscalene Anesthesia monitors applied: pulse oximetry, EKG, BP cuff and oxygen Nerve block position: supine Anesthetic Used: bupivacaine 0.25% Amount of anesthesia used (mL): 11 Ultrasound used to: recognize landmarks and visualize and ID interscalene groove Nerve Stimulator Used?: No Interscalene/Femoral BLK: 2 stimuplex 22 g needle used for position and inplane approach Complications: none Additional Comments: After completion of supra - clavicular block patient taken to Phase 2 PACU. Patient had pain control in radial nerve distribution but continued median nerve distribution pain. After time out sterile prep, using sterile technique, and using real time US guidance for target selection needle was inserted with real time visualization of needle entry and real time visualization of needle advancement toward intended target. Negative aspiration. LA injected incrementally with negative aspiration every 2 cc and real time US visualization of LA spread throughout procedure. After 11 cc total injected patient began feeling much improved. Needle re-positioned, heme on aspirated, procedure stopped. Tolerated well. Excellent pain relief per patient. Image(s) saved.
--- NOTE | 2021-07-25 14:27 | ANE.PACU2 ---
Inpatient post-anesthesia follow up: Airway intact: Yes Vital signs: Temperature 98.6 F Pulse Rate 86 Respiratory Rate 18 Blood Pressure 180/76 Pulse Oximetry 95 Oxygen Delivery Me thod Room Air Oxygen Flow Rate 3 Fraction of Inspir ed Oxygen Hydration adequate: Yes Nausea and vomiting: No Pain level: 1 Mental status: Baseline
== END 2021-07-25 11:50 | disposition home or self-care (01) ==
PROVIDERS: PCP Nurse Practitioner Family; Visit Provider Orthopaedic Surgery
PROC: (CPT 25607; principal; 2021-07-25 07:00)
DX: S52.552A Other extraarticular fracture of lower end of left radius, initial encounter for closed fracture (principal); X58.XXXA Exposure to other specified factors, initial encounter; Z87.891 Personal history of nicotine dependence; J45.909 Unspecified asthma, uncomplicated; Z86.16 Personal history of COVID-19; K21.9 Gastro-esophageal reflux disease without esophagitis; M79.7 Fibromyalgia; M06.9 Rheumatoid arthritis, unspecified
CPT/HCPCS: 25607; 64415; 73100; 76000; 76942; 80053; 85025; 85651; 86140; C1713; J2405; J2704; J3010; J3490; J7030

== ENCOUNTER 2021-07-25 13:10 | Outpatient (CLI) | payer MEDICARE, SELFPAY ==
[2021-07-25 14:21] LABS: Basophils % 0.3 %; Eosinophils # 0.1 10^3/uL (0.0-0.8); Eosinophils % 0.8 %; Hematocrit 38.8 % (37.0-47.0); Hemoglobin 12.9 g/dL (11.5-15.3); Lymphocytes # 2.9 10^3/uL (0.8-4.8); Lymphocytes % 23.5 %; Mean Corpuscular HGB Conc 33.2 g/dL (30.0-36.0); Mean Corpuscular Hemoglobin 30.1 pg (28.0-34.0); Mean Corpuscular Volume 90.4 fl (81-99); Mean Platelet Volume 10.4 fL (7.4-10.4); Monocytes # 0.8 10^3/uL (0.2-0.9); Monocytes % 6.8 %; Neutrophils # 8.31 10^3/uL (1.8-7.7); Neutrophils % 68.2 %; Nucleated Red Blood Cells % 0 %; Platelet Count 354 10^3/cmm (130-400); Red Blood Count 4.29 10^6/uL (4.1-5.3); White Blood Count 12.2 10^3/uL (4.0-10.0)
[2021-07-25 14:29] LABS: Erythrocyte Sedimentation Rate 11 mm/hr (0-15)
[2021-07-25 15:06] LABS: Alanine Aminotransferase 29 U/L (0-33); Albumin Level 4.6 g/dL (3.5-5.2); Alkaline Phosphatase 70 IU/L (35-105); Anion Gap 17.4 (5-19); Aspartate Amino Transferase 25 U/L (0-32); Blood Urea Nitrogen 12 mg/dL (8-23); Calcium 10.1 mg/dL (8.5-10.5); Carbon Dioxide 22 mmol/L (22-29); Chloride 102 mmol/L (98-107); Globulin 3.3 g/dL (1.3-4.6); Glomerular Filtration Rate 72.7 mL/min (90-130); Glucose 171 mg/dL (65-115); Osmolality Calculated 290 mOsm/kg (285-295); Potassium 3.4 mmol/L (3.5-5.1); Sodium 138 mmol/L (136-145); Total Bilirubin 0.4 mg/dL (0.15-1.2); Total Protein 7.9 g/dL (6.6-8.7)
== END 2021-07-25 13:11 | disposition home or self-care (01) ==
LOC: LAB 13:11
PROVIDERS: PCP Nurse Practitioner Family; Visit Provider Internal Medicine
DX: L40.50 Arthropathic psoriasis, unspecified (principal); Z79.899 Other long term (current) drug therapy
CPT/HCPCS: 80053; 85025; 85651; 86140

== ENCOUNTER → 2021-07-28 13:08 | Outpatient (BNVA) | payer MEDICARE, SELFPAY | PROVIDERS: PCP Nurse Practitioner Family; Visit Provider Internal Medicine | DX: L40.50 Arthropathic psoriasis, unspecified (principal); Z79.899 Other long term (current) drug therapy; S52.502A Unspecified fracture of the lower end of left radius, initial encounter for closed fracture; S52.602A Unspecified fracture of lower end of left ulna, initial encounter for closed fracture; Z87.891 Personal history of nicotine dependence; Y93.9 Activity, unspecified | CPT/HCPCS: 99213; 99214 ==

== ENCOUNTER → 2021-08-02 14:06 | Outpatient (BNVA) | payer MEDICARE, SELFPAY | PROVIDERS: PCP Nurse Practitioner Family; Visit Provider Nurse Practitioner Family | DX: N30.20 Other chronic cystitis without hematuria (principal) | CPT/HCPCS: 81003 ==

== ENCOUNTER → 2021-08-11 13:23 | Outpatient (BNVA) | payer MEDICARE, SELFPAY | PROVIDERS: PCP Nurse Practitioner Family; Visit Provider Orthopaedic Surgery | DX: S52.502D Unspecified fracture of the lower end of left radius, subsequent encounter for closed fracture with routine healing (principal); X58.XXXD Exposure to other specified factors, subsequent encounter | CPT/HCPCS: 73110; 99024 ==

== ENCOUNTER 2021-08-11 14:39 | Outpatient (CLI) | payer MEDICARE, SELFPAY | END 2021-08-11 14:40 | disposition home or self-care (01) | LOC: SPT 14:47 | PROVIDERS: PCP Nurse Practitioner Family; Visit Provider Orthopaedic Surgery | DX: Z47.89 Encounter for other orthopedic aftercare (principal) | CPT/HCPCS: 97760; L3908 ==

== ENCOUNTER → 2021-09-08 10:23 | Outpatient (BNVA) | payer MEDICARE, SELFPAY | PROVIDERS: PCP Nurse Practitioner Family; Visit Provider Orthopaedic Surgery | DX: S52.552D Other extraarticular fracture of lower end of left radius, subsequent encounter for closed fracture with routine healing (principal); X58.XXXD Exposure to other specified factors, subsequent encounter | CPT/HCPCS: 73110; 99024 ==

== ENCOUNTER → 2021-10-18 11:09 | Outpatient (BNVA) | payer MEDICARE, SELFPAY | PROVIDERS: PCP Nurse Practitioner Family; Referring Provider Nurse Practitioner Family; Visit Provider Podiatrist Foot & Ankle Surgery | DX: S52.502D Unspecified fracture of the lower end of left radius, subsequent encounter for closed fracture with routine healing (principal); S52.602D Unspecified fracture of lower end of left ulna, subsequent encounter for closed fracture with routine healing; X58.XXXD Exposure to other specified factors, subsequent encounter; L60.3 Nail dystrophy | CPT/HCPCS: 73110; 99024; 99203 ==

== ENCOUNTER → 2021-11-07 15:40 | Outpatient (BNVA) | payer MEDICARE, SELFPAY | PROVIDERS: PCP Nurse Practitioner Family; Visit Provider Urology | DX: N30.20 Other chronic cystitis without hematuria (principal) | CPT/HCPCS: 81003; 87086; 99213 ==

== ENCOUNTER → 2021-11-14 13:24 | Outpatient (BNVA) | payer MEDICARE, SELFPAY | PROVIDERS: PCP Nurse Practitioner Family; Visit Provider Internal Medicine | DX: L60.3 Nail dystrophy (principal); M54.50 Low back pain, unspecified; L40.9 Psoriasis, unspecified | CPT/HCPCS: 99213; 99214 ==

== ENCOUNTER 2021-11-18 13:32 | Outpatient (CLI) | payer MEDICARE, SELFPAY ==
--- NOTE | 2021-11-18 13:40 | MM_ITS ---
WS: [id number] BILATERAL 3D TOMOSYNTHESIS DIGITAL SCREENING MAMMOGRAPHY WITH CAD CLINICAL INFORMATION: Z12.31 - Encounter for screening mammogram for malignant ... HISTORY: Bilateral breast pain and soreness. COMPARISON: None. TECHNIQUE: Bilateral CC, MLO ..views. FINDINGS: Scattered fibroglandular densities bilaterally. Punctate and lucent centered calcifications. No suspicious focal mass, asymmetry, calcifications, or architectural distortion. No evidence of teri gnancy. MM/[place] [id number] IMPRESSION: BI-RADS: 2-Benign FOLLOW UP: 1 Year Follow-up Recommend return to annual screening mammography.
--- NOTE | 2021-11-18 14:18 | XR_ITS ---
WS: [id number] DEXA (DUAL ENERGY X-RAY ABSORPTIOMETRY) Bone mineral density was performed using a Microstrip Plan[employer] Anten[employer] machine. HISTORY: Z78.0 - Asymptomatic menopausal state COMPARISON: None available. Total hip BMD: Left: 0.795 g/cm2. T score: -1.7 Z score: -0.5 Right: 0.784 g/cm2. T score: -1.8 Z score: -0.6 10 year probability of a major osteoporotic fracture is 21.4%. XR/XR DEXA axial skeleton* [id number] IMPRESSION: OSTEOPENIA based upon the WHO classification for females.
== END 2021-11-18 13:33 | disposition home or self-care (01) ==
LOC: RAD 13:33
PROVIDERS: PCP Nurse Practitioner Family; Visit Provider Nurse Practitioner Family
DX: Z12.31 Encounter for screening mammogram for malignant neoplasm of breast (principal); Z78.0 Asymptomatic menopausal state; M85.80 Other specified disorders of bone density and structure, unspecified site
CPT/HCPCS: 77063; 77067; 77080

== ENCOUNTER → 2021-11-30 09:56 | Outpatient (BNVA) | payer MEDICARE, SELFPAY | PROVIDERS: PCP Nurse Practitioner Family; Visit Provider Nurse Practitioner Family | DX: L40.50 Arthropathic psoriasis, unspecified (principal); R73.9 Hyperglycemia, unspecified; I10 Essential (primary) hypertension | CPT/HCPCS: 80053; 80061; 83036; 84439; 84443; 85025 ==

== ENCOUNTER 2021-12-02 14:10 | Outpatient (CLI) | payer MEDICARE, SELFPAY ==
--- NOTE | 2021-12-02 14:20 | XR_ITS ---
WS: [id number] Thoracic spine, 3 views, 12/02/2021 Clinical Data: L40.50 - Arthropathic psoriasis, unspecified Comparison: None. Findings: No compression fractures are seen. The disc heights are normal. There is minimal osteoarthritic change of the upper thoracic vertebral bodies and moderate osteoarthr itic change from T9 through T12. The paravertebral regions are normal. The patient has had a reverse arthroplasty of the right shoulder and a posterior lumbar fusion. XR/XR thoracic spine 3V* [id number] Impression: Osteoarthritis of the thoracic vertebral bodies.
== END 2021-12-02 14:11 | disposition home or self-care (01) ==
LOC: RAD 14:13
PROVIDERS: PCP Nurse Practitioner Family; Visit Provider Internal Medicine
DX: L40.50 Arthropathic psoriasis, unspecified (principal)
CPT/HCPCS: 72072

== ENCOUNTER → 2022-04-13 13:16 | Outpatient (BNVA) | payer MEDICARE, SELFPAY | PROVIDERS: PCP Nurse Practitioner Family; Visit Provider Internal Medicine | DX: L40.9 Psoriasis, unspecified (principal); M54.50 Low back pain, unspecified | CPT/HCPCS: 99213 ==

== ENCOUNTER → 2022-07-10 15:49 | Outpatient (BNVA) | payer MEDICARE, SELFPAY | PROVIDERS: PCP Nurse Practitioner Family; Visit Provider Internal Medicine | DX: L40.9 Psoriasis, unspecified (principal); M54.2 Cervicalgia; M54.9 Dorsalgia, unspecified; G89.29 Other chronic pain; M96.1 Postlaminectomy syndrome, not elsewhere classified | CPT/HCPCS: 80053; 80061; 84439; 84443; 85025; 85651; 86140; 99214 ==

== ENCOUNTER → 2022-08-02 09:28 | Outpatient (BNVA) | payer MEDICARE, SELFPAY | PROVIDERS: PCP Nurse Practitioner Family; Visit Provider Anesthesiology Pain Medicine | DX: G89.29 Other chronic pain; M25.551 Pain in right hip; M54.16 Radiculopathy, lumbar region; M54.12 Radiculopathy, cervical region; M96.1 Postlaminectomy syndrome, not elsewhere classified | CPT/HCPCS: 72040; 73502; 99214 ==

== ENCOUNTER → 2022-08-15 08:53 | Outpatient (BNVA) | payer MEDICARE, SELFPAY | PROVIDERS: PCP Nurse Practitioner Family; Visit Provider Anesthesiology Pain Medicine | DX: G89.29 Other chronic pain (principal); M54.2 Cervicalgia; M54.50 Low back pain, unspecified; M96.1 Postlaminectomy syndrome, not elsewhere classified; M79.604 Pain in right leg; M79.605 Pain in left leg; M79.18 Myalgia, other site | CPT/HCPCS: 20553; 99213 ==

== ENCOUNTER 2022-08-24 10:03 | Outpatient (CLI) | payer MEDICARE, SELFPAY ==
--- NOTE | 2022-08-24 10:15 | MR_ITS ---
WS: [email or web address] MRI CERVICAL SPINE NONCONTRAST TECHNIQUE: Sagittal T1, T2 and STIR imaging. Axial T2, gradient, and fiesta imaging. CLINICAL INFORMATION: M54.12 - Radiculopathy, cervical region COMPARISON: None. FINDINGS: Straightening of the normal cervical lordosis. Moderate spondylitic changes. Segmentation anomaly C2- C3. Mild disc bulging worse at C3-C4 C4-C5 and C5-C6. Cord signal is normal. 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 Rudimentary disc space at this level. Spinal canal a nd foramen are patent. C3-C4: Slight retrolisthesis. Disc osteophytic ridging with slight indentation on cervical cord. Mild central canal stenosis. Moderate facet arthropathy. Moderate LEFT and mild RIGHT bony foraminal narr owing. C4-C5: Disc osteophyte complex with endplate ridging. Moderate central canal stenosis and slight inde ntation on cervical cord. Moderate facet arthropathy. Moderate to severe RIGHT greater than LEFT bony foraminal narrowing. C5-C6: RIGHT pericentral disc osteophyte protrusion. Indentation RIGHT ventral cervical cord with mil d central canal stenosis. Severe RIGHT and mild LEFT bony foraminal narrowing. Moderate facet arthrop athy. C6-C7: Disc osteophyte complex with endplate ridging. Mild central canal stenosis. Moderate to severe bilateral bony foraminal narrowing. C7-T1: Disc osteophytic ridging. Moderate RIGHT and mild LEFT bony foraminal narrowing. Visualized brain stem structures: Normal. Prevertebral soft tissues: Normal. MR/MR cervical spin wo con* [id number] IMPRESSION: 1. Straightening of the normal cervical lordosis. Moderate spondylitic changes . 2. 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 3. Mild central canal stenosis C3-C4, C5-C6, and C6-C7. 4. Moderate central canal stenosis C4-C5. 5. RIGHT pericentral disc osteophyte complex C5-C6 impinges the RIGHT ventral cervical cord. Severe RIGHT C5-C6 bony foraminal narrowing. 6. Moderate to severe bony foraminal narrowing worse at RIGHT C4-C5, RIGHT C5- C6, and bilateral C6-C7.
--- NOTE | 2022-08-24 10:53 | MR_ITS ---
WS: [id number] MRI LUMBAR SPINE NONCONTRAST TECHNIQUE: Sagittal T1, T2 and STIR imaging. Axial T1 and T2 imaging. CLINICAL INFORMATION: M54.16 - Radiculopathy, lumbar region COMPARISON: None. FINDINGS: Mild lumbar curve. No acute compression. Pedicle screw fixation with interbody fusion L2-L5. Anterior fixation screws L5-S1. Anterior fixation at L4-L5. Disc space narrowing at L1-L2 with slight retroli sthesis mild disc bulging. Endplate edema at L1 likely degenerative. T11-T12: Mild disc bulging. Slight effacement of the ventral thecal sac. Spinal canal and foramen heaven ear patent. T12-L1: Mild annular bulging. LEFT subarticular protrusion. Narrowing of the LEFT subarticular recess . Moderate facet arthropathy. Mild LEFT foraminal narrowing. RIGHT foramen is patent. Mild facet arth ropathy. L1-L2: Slight retrolisthesis. Shallow central disc protrusion. Mild central canal stenosis. Impingeme nt subarticular recess bilaterally. Mild facet arthropathy. Moderate LEFT greater than RIGHT foramina l narrowing. L2-L3: Postoperative changes pedicle screw fixation with interbody fusion. Spinal canal and foramen a re patent. Mild facet arthropathy. L3-L4: RIGHT pedicle screw fixation. Interbody fusion. Spinal canal and foramen are patent. Mild face t arthropathy. L4-L5: Pedicle screw fixation. Interbody fusion. Mild RIGHT and no significant LEFT foraminal narrowi ng. Mild facet arthropathy. L5-S1: Pedicle screw fixation. Mild facet arthropathy. Spinal canal and foramen are patent. Slight co ntact of the RIGHT greater than LEFT S1 nerve roots. Small RIGHT renal cysts. Visualized pelvic bony structures: Normal. Paravertebral soft tissues: Normal. Retroverted uterus. MR/MR lumbar spine wo con* [id number] IMPRESSION: 1. Postoperative changes pedicle screw fixation with interbody fusion L2-L5. A nterior screw fixation L4-L5 and L5-S1. 2. Mild central canal stenosis L1-L2 with slight retrolisthesis. Mild central canal stenosis. Impingement traversing LEFT L2 nerve root. Moderate bilateral f oraminal narrowing. 3. Spinal canal has been decompressed L2-L5. 4. Mild central canal stenosis T12-L1 with narrowing of the LEFT greater than RIGHT subarticular recess. Mild LEFT foraminal narrowing at this level. 5. Osteophytic ridging L5-S1 with slight contact of the S1 nerve roots. 6. Retroverted uterus.
== END 2022-08-24 10:04 | disposition home or self-care (01) ==
LOC: RAD 10:08
PROVIDERS: PCP Nurse Practitioner Family; Visit Provider Anesthesiology Pain Medicine
DX: M54.16 Radiculopathy, lumbar region (principal); M54.12 Radiculopathy, cervical region; M48.02 Spinal stenosis, cervical region; M48.05 Spinal stenosis, thoracolumbar region; M25.78 Osteophyte, vertebrae; Q76.49 Other congenital malformations of spine, not associated with scoliosis; N85.4 Malposition of uterus
CPT/HCPCS: 72040; 72141; 72148; 73502; 99214

== ENCOUNTER → 2022-08-29 15:30 | Outpatient (BNVA) | payer MEDICARE, SELFPAY | PROVIDERS: PCP Nurse Practitioner Family; Visit Provider Nurse Practitioner Family | DX: I10 Essential (primary) hypertension (principal); E03.9 Hypothyroidism, unspecified | CPT/HCPCS: 80053; 80061; 84443 ==

== ENCOUNTER → 2022-08-30 14:44 | Outpatient (BNVA) | payer MEDICARE, SELFPAY | PROVIDERS: PCP Nurse Practitioner Family; Visit Provider Dermatology | DX: L40.0 Psoriasis vulgaris (principal); L40.59 Other psoriatic arthropathy; L57.0 Actinic keratosis; L72.8 Other follicular cysts of the skin and subcutaneous tissue; Z85.828 Personal history of other malignant neoplasm of skin; Z87.891 Personal history of nicotine dependence; L72.0 Epidermal cyst; L81.4 Other melanin hyperpigmentation | CPT/HCPCS: 17000; 17003; 99213 ==

== ENCOUNTER → 2022-10-18 16:52 | Outpatient (BNVA) | payer MEDICARE, SELFPAY | PROVIDERS: PCP Nurse Practitioner Family; Visit Provider Nurse Practitioner Family | DX: E03.9 Hypothyroidism, unspecified (principal) | CPT/HCPCS: 84443 ==

== ENCOUNTER → 2022-10-19 14:25 | Outpatient (BNVA) | payer MEDICARE, SELFPAY | PROVIDERS: PCP Nurse Practitioner Family; Visit Provider Nurse Practitioner Family | DX: R30.9 Painful micturition, unspecified (principal) | CPT/HCPCS: 81003; 87077; 87086; 87184 ==

== ENCOUNTER → 2022-10-26 11:13 | Outpatient (BNVA) | payer MEDICARE, SELFPAY | PROVIDERS: PCP Nurse Practitioner Family; Visit Provider Anesthesiology Pain Medicine | DX: G89.29 Other chronic pain (principal); M48.061 Spinal stenosis, lumbar region without neurogenic claudication; M96.1 Postlaminectomy syndrome, not elsewhere classified; M54.2 Cervicalgia | CPT/HCPCS: 99214 ==

== ENCOUNTER → 2022-11-02 16:14 | Outpatient (BNVA) | payer MEDICARE, SELFPAY | PROVIDERS: PCP Nurse Practitioner Family; Visit Provider Nurse Practitioner Family | DX: R30.0 Dysuria (principal) | CPT/HCPCS: 81003; 87086 ==

== ENCOUNTER → 2022-11-15 16:16 | Outpatient (BNVA) | payer MEDICARE, SELFPAY | PROVIDERS: PCP Nurse Practitioner Family; Visit Provider Nurse Practitioner Family | DX: N23 Unspecified renal colic (principal) | CPT/HCPCS: 81003; 87077; 87086; 87184 ==

== ENCOUNTER → 2022-12-18 12:57 | Outpatient (BNVA) | payer MEDICARE, SELFPAY | PROVIDERS: PCP Nurse Practitioner Family; Visit Provider Anesthesiology Pain Medicine | DX: M54.16 Radiculopathy, lumbar region (principal); M54.2 Cervicalgia; G89.29 Other chronic pain | CPT/HCPCS: 62321; 62323; J1040 ==

== ENCOUNTER → 2023-01-01 09:27 | Outpatient (BNVA) | payer MEDICARE, SELFPAY | PROVIDERS: PCP Nurse Practitioner Family; Visit Provider Anesthesiology Pain Medicine | DX: M54.2 Cervicalgia (principal); G89.29 Other chronic pain; M96.1 Postlaminectomy syndrome, not elsewhere classified; M48.061 Spinal stenosis, lumbar region without neurogenic claudication; Z79.899 Other long term (current) drug therapy | CPT/HCPCS: 99215 ==

== ENCOUNTER → 2023-01-08 15:18 | Outpatient (BNVA) | payer MEDICARE, SELFPAY | PROVIDERS: PCP Nurse Practitioner Family; Visit Provider Internal Medicine | DX: L40.9 Psoriasis, unspecified (principal); M54.50 Low back pain, unspecified | CPT/HCPCS: 99214 ==

== ENCOUNTER 2023-01-10 17:35 | Outpatient (CLI) | payer MEDICARE, SELFPAY ==
--- NOTE | 2023-01-10 06:19 | MM_ITS ---
WS: [id number] BILATERAL SCREENING DIGITAL TOMOSYNTHESIS MAMMOGRAM WITH CAD HISTORY: Z12.31 - Encounter for screening mammogram for malignant ... COMPARISON: 11/18/2021 Bilateral CC and MLO views with tomosynthesis and synthetic mammography submitted. Computer aided det ection analyzed. Breast composition: There are scattered areas of fibroglandular density. No suspicious masses, microc alcifications or architectural distortion. Benign calcifications in each breast. IMPRESSION: MM/[place] [id number] BI-RADS: 2-Benign FOLLOW UP: 1 Year Follow-up
== END 2023-01-10 17:36 | disposition home or self-care (01) ==
LOC: MOBLMAM 17:39
PROVIDERS: PCP Nurse Practitioner Family; Visit Provider Nurse Practitioner Family
DX: Z12.31 Encounter for screening mammogram for malignant neoplasm of breast (principal)
CPT/HCPCS: 77063; 77067

== ENCOUNTER → 2023-02-05 12:45 | Outpatient (BNVA) | payer MEDICARE, SELFPAY | PROVIDERS: PCP Nurse Practitioner Family; Visit Provider Anesthesiology Pain Medicine | DX: M47.814 Spondylosis without myelopathy or radiculopathy, thoracic region (principal); M54.2 Cervicalgia; G89.29 Other chronic pain | CPT/HCPCS: 64490; 64491; 64493; J3490 ==

== ENCOUNTER → 2023-03-12 09:11 | Outpatient (BNVA) | payer MEDICARE, SELFPAY | PROVIDERS: PCP Nurse Practitioner Family; Visit Provider Anesthesiology Pain Medicine | DX: M48.062 Spinal stenosis, lumbar region with neurogenic claudication (principal); G89.29 Other chronic pain; M96.1 Postlaminectomy syndrome, not elsewhere classified; M25.78 Osteophyte, vertebrae; M54.2 Cervicalgia | CPT/HCPCS: 99214 ==

== ENCOUNTER → 2023-05-10 11:02 | Outpatient (BNVA) | payer MEDICARE, SELFPAY | PROVIDERS: PCP Nurse Practitioner Family; Referring Provider Anesthesiology Pain Medicine; Visit Provider Orthopaedic Surgery | DX: M48.062 Spinal stenosis, lumbar region with neurogenic claudication (principal); Z98.1 Arthrodesis status; M54.2 Cervicalgia | CPT/HCPCS: 72110; 99204 ==

== ENCOUNTER → 2023-05-14 09:52 | Outpatient (BNVA) | payer MEDICARE, SELFPAY | PROVIDERS: PCP Nurse Practitioner Family; Visit Provider Anesthesiology Pain Medicine | DX: M48.062 Spinal stenosis, lumbar region with neurogenic claudication (principal); G89.29 Other chronic pain; M96.1 Postlaminectomy syndrome, not elsewhere classified; M54.2 Cervicalgia | CPT/HCPCS: 99214 ==

== ENCOUNTER 2023-06-06 08:58 | Outpatient (CLI) | payer MEDICARE, SELFPAY ==
--- NOTE | 2023-06-06 09:30 | MR_ITS ---
WS: [id number] MRI LUMBAR SPINE NONCONTRAST TECHNIQUE: Sagittal T1, T2 and STIR imaging. Axial T1 and T2 imaging. CLINICAL INFORMATION: back pain COMPARISON: MRI 08/24/2022 FINDINGS: Postoperative changes appear stable since 08/24/2022. Pedicle screw fixation L2-S1. Interbody fusion g rafts. Anterior screw fixation L3-L4 and L5-S1. Disc space narrowing at L1-2 has progressed compared to previous. Small disc protrusions in the lower thoracic spine. L1-L2: Mild disc bulging with moderate bilateral bony foraminal narrowing. Moderate facet arthropathy . Disc space narrowing at this level has progressed. Mild central canal stenosis with slight retrolis thesis. Slight narrowing of the subarticular recess bilaterally. L2-L3: Postoperative changes. Spinal canal and foramen are patent. L3-L4: Postoperative changes. Spinal canal and foramen are patent. Moderate facet arthropathy. L4-L5: Postoperative changes. Spinal canal and foramen are patent. Moderate facet arthropathy. L5-S1: Postoperative changes. Spinal canal and foramen are patent. Mild facet arthropathy. Visualized pelvic bony structures: Normal. Paravertebral soft tissues: Normal. Retroverted uterus. IMPRESSION: 1. Postoperative changes appear stable compared to 08/24/2022. 2. Disc space narrowing L1-2 has progressed compared to previous with mild central canal stenosis an d moderate bilateral foraminal narrowing. 3. Spinal canal and foramen are patent at the fusion levels L2-L5. 4. Small disc protrusions in the lower thoracic spine. 5. No other significant changes compared to previous.
--- NOTE | 2023-06-06 10:15 | MR_ITS ---
WS: [id number] MRI CERVICAL SPINE NONCONTRAST TECHNIQUE: Sagittal T1, T2 and STIR imaging. Axial T2, gradient, and fiesta imaging. CLINICAL INFORMATION: neck pain COMPARISON: MRI 08/24/2022 FINDINGS: Mild spondylitic changes. Segmentation anomaly C2-3. Straightening of the normal cervical doses with mild cervical curve. Disc bulging worse at C3-C4 C4-C5 and C5-C6. Cord signal is normal. C2-C3: Congenital segmentation anomaly. Spinal canal and foramen are patent. C3-C4: Mild disc osteophyte complex with endplate ridging. Moderate LEFT and mild RIGHT bony foramina l narrowing. Mild central canal stenosis. C4-C5: Disc osteophyte complex with endplate ridging. Moderate to severe bilateral bony foraminal josh rowing. Moderate central canal stenosis with slight impingement on the cervical cord. Moderate facet arthropathy. C5-C6: Disc osteophyte complex with endplate ridging. Slight indentation RIGHT ventral cervical cord. Severe RIGHT and mild LEFT bony foraminal narrowing. Mild facet arthropathy. C6-C7: Disc osteophyte complex with endplate ridging. Mild central canal stenosis. Moderate to severe bilateral bony foraminal narrowing with uncovertebral joint hypertrophy. Moderate facet arthropathy. C7-T1: Mild disc bulge with osteophytic ridging. Moderate bilateral bony foraminal narrowing. Visualized brain stem structures: Normal. Prevertebral soft tissues: Normal. IMPRESSION: 1. Straightening of the normal cervical lordosis with moderate spondylitic changes. Congenital segme ntation anomaly at C2-3. 2. Mild central canal stenosis C3-C4 C5-C6 and C6-C7 unchanged. 3. Moderate central canal stenosis C4-5 slight indentation of the cervical cord. This appears uncha nged from previous. 4. Multilevel moderate to severe bony foraminal narrowing worse at LEFT C3-4, RIGHT C4-5, RIGHT C5-6 , and bilateral C6-7. 5. Overall no significant changes since 08/24/2022.
--- NOTE | 2023-06-06 11:00 | MR_ITS ---
WS: [id number] MRI THORACIC SPINE WITHOUT CONTRAST TECHNIQUE: Sagittal T1, T2 and STIR imaging. Axial T2 imaging. Noncontrast imaging obtained. CLINICAL INFORMATION: neck pain COMPARISON: None. FINDINGS: Mild thoracic curve. Mild thoracic kyphosis. Postoperative changes partially visualized in the lumbar spine. Mild central canal stenosis in the cervical spine on police department secretary imaging. Segmentation anomaly at C 2-3. Counting performed from the craniocervical junction. Small disc protrusions more prominent at T1-T2, T3-4, T4-5, T5-6, T6-7, T8-9, T9-10, T11-12, T12-L1. Disc desiccation with disc space narrowing T11-T12 and T12-L1. Mild LEFT T9-10 and T10-11 bony forami nal narrowing. No acute appearing compression fractures. Moderate facet arthropathy lower thoracic spine. Normal jacky iber thoracic aorta. Small esophageal hernia. IMPRESSION: 1. Mild thoracic curve. Mild thoracic kyphosis. No acute appearing compression fractures. 2. No significant central canal stenosis. 3. Cord signal is normal. 4. Moderate facet arthropathy in the lower thoracic spine. 5. Shallow disc protrusions described above. No significant central canal stenosis. 6. Mild LEFT T9-10 and T10-11 bony foraminal narrowing.
== END 2023-06-06 08:59 | disposition home or self-care (01) ==
LOC: RAD 08:58
PROVIDERS: PCP Nurse Practitioner Family; Visit Provider Orthopaedic Surgery
DX: M47.812 Spondylosis without myelopathy or radiculopathy, cervical region (principal); M48.02 Spinal stenosis, cervical region; M48.061 Spinal stenosis, lumbar region without neurogenic claudication; M51.24 Other intervertebral disc displacement, thoracic region; M47.814 Spondylosis without myelopathy or radiculopathy, thoracic region; M40.204 Unspecified kyphosis, thoracic region; M48.04 Spinal stenosis, thoracic region; Z98.1 Arthrodesis status
CPT/HCPCS: 72141; 72146; 72148

== ENCOUNTER → 2023-06-08 12:02 | Outpatient (BNVA) | payer MEDICARE, SELFPAY | PROVIDERS: PCP Nurse Practitioner Family; Visit Provider Nurse Practitioner Family | DX: E03.9 Hypothyroidism, unspecified (principal) | CPT/HCPCS: 84443 ==

== ENCOUNTER → 2023-06-21 14:16 | Outpatient (BNVA) | payer MEDICARE, SELFPAY | PROVIDERS: PCP Nurse Practitioner Family; Visit Provider Internal Medicine Rheumatology | DX: Z79.899 Other long term (current) drug therapy (principal); L40.50 Arthropathic psoriasis, unspecified; Z11.1 Encounter for screening for respiratory tuberculosis; Z11.59 Encounter for screening for other viral diseases; L40.0 Psoriasis vulgaris; Z71.85 Encounter for immunization safety counseling | CPT/HCPCS: 36415; 80076; 82565; 85025; 86140; 86480; 86704; 86803; 87340; 99214 ==

== ENCOUNTER → 2023-07-05 14:28 | Outpatient (BNVA) | payer MEDICARE, SELFPAY | PROVIDERS: PCP Nurse Practitioner Family; Visit Provider Orthopaedic Surgery | DX: M48.062 Spinal stenosis, lumbar region with neurogenic claudication (principal) | CPT/HCPCS: 99214 ==

== ENCOUNTER → 2023-07-12 10:23 | Outpatient (BNVA) | payer MEDICARE, SELFPAY | PROVIDERS: PCP Nurse Practitioner Family; Visit Provider Anesthesiology Pain Medicine | DX: M48.062 Spinal stenosis, lumbar region with neurogenic claudication (principal); M54.2 Cervicalgia; G89.29 Other chronic pain; M96.1 Postlaminectomy syndrome, not elsewhere classified | CPT/HCPCS: 99214 ==

== ENCOUNTER → 2023-07-24 08:06 | Outpatient (BNVA) | payer MEDICARE, SELFPAY | PROVIDERS: PCP Nurse Practitioner Family; Visit Provider Nurse Practitioner Family | DX: L40.0 Psoriasis vulgaris (principal); L40.59 Other psoriatic arthropathy; D18.01 Hemangioma of skin and subcutaneous tissue; Z85.828 Personal history of other malignant neoplasm of skin; L72.0 Epidermal cyst | CPT/HCPCS: 17000; 99214 ==

== ENCOUNTER → 2023-09-17 10:08 | Outpatient (BNVA) | payer MEDICARE, SELFPAY | PROVIDERS: PCP Nurse Practitioner Family; Visit Provider Anesthesiology Pain Medicine | DX: M48.062 Spinal stenosis, lumbar region with neurogenic claudication (principal); M54.2 Cervicalgia; G89.29 Other chronic pain; M96.1 Postlaminectomy syndrome, not elsewhere classified | CPT/HCPCS: 99214 ==

== ENCOUNTER → 2023-09-18 11:00 | Outpatient (BNVA) | payer MEDICARE, SELFPAY | PROVIDERS: PCP Nurse Practitioner Family; Visit Provider Nurse Practitioner Family | DX: R30.9 Painful micturition, unspecified (principal); I10 Essential (primary) hypertension; L40.50 Arthropathic psoriasis, unspecified; M54.2 Cervicalgia; M54.9 Dorsalgia, unspecified; G89.29 Other chronic pain; Z78.9 Other specified health status; M48.062 Spinal stenosis, lumbar region with neurogenic claudication | CPT/HCPCS: 81000 ==

== ENCOUNTER 2023-10-02 08:59 | Emergency (ER) | payer MEDICARE, SELFPAY ==
[2023-10-02 09:06] VITALS: BP 142/65; PULSE 69; TEMP 36.6; O2SAT 99; BMI 29.6
--- NOTE | 2023-10-02 09:13 | ED_ITS ---
HPI - Extremity Problem General: Chief complaint: Extremity Injury, Upper Stated complaint: Right wrist pain Time Seen by Provider: 10/02/23 09:06 Source: patient Mode of arrival: ambulatory Limitations: no limitations History of Present Illness: Patient is a 63-year-old female presents to ED today with complaint of right wrist and hand pain that started yesterday after she was using it to open a bot tle of water. Patient states she was not having any discomfort until after this incident. She states her bones are in rough shape reporting that she has been diagnosed with osteoporosis and psoriatic arthritis. She has noticed swelling to the right hand since the injury. MD Complaint: extremity pain, extremity swelling, joint swelling and joint pain Onset (ago): day(s) (yesterday) Pain Consistency: constant Location: right and upper extremity Radiation: none Relieving factors: immobilization Exacerbating factors: range of motion and palpation Associated symptoms: Reports no associated symptoms; Deny chest pain or fever(s) Review of Systems Const: Denies: fever(s) Card: Denies: chest pain Resp: Denies: dyspnea Musc: Reports: extremity pain, extremity swelling, joint pain and joint swelling; Denies: joint redness or joint warmth Neuro: Denies: numbness in extremities or sensory changes PFSH ED PFSH: Medical History Immunization counseling High risk medication use Plaque psoriasis Psoriasis Chronic cystitis Urolithiasis Hypothyroidism Fibromyalgia Surgical History History of abdominal surgery EMBRYOTIC MASS History of knee surgery History of shoulder replacement History of rotator cuff surgery History of back surgery History of appendectomy Family History Father Diabetes Hyperlipidemia Mother , AT AGE 83 Cancer Social History Smoking and tobacco/nicotine status: former use of tobacco/nicotine Alcohol intake: current Alcohol intake frequency: few times a week Alcohol type: beer and wine Substance/Drug Use: never Marital status: Current occupational status: disabled Physical Exam Const: COMMON NORMALS: no acute distress, average body habitus, patient oriented x3, no limitations, alert and well nourished GENERAL APPEARANCE: cooperative Extremity: COMMON NORMALS: capillary refill normal and no clubbing, cyanosis or edema GENERAL: Yes normal exam except as noted RIGHT UPPER EXTREMITY: Yes wrist Right wrist: Yes neurovascular exam (normal) and Yes hand & digits (TTP throughout thenar eminence/1st metacarpal; edema) Right hand and digits: Yes inspection (edema noted; chronic joint changes associated with her arthritis) and Yes neurovascular exam (normal) Neuro: COMMON NORMALS: patient oriented x3, moves all extremities, no focal motor deficits and no sensory deficits noted SENSORIUM/ORIENTATION: Yes alert Course Vital Signs: Vital signs: Vital Signs Temperature 97.8 F 10/02/23 09:06 Pulse Rate 69 10/02/23 09:06 Blood Pressure 142/65 10/02/23 09:06 Pulse Oximetry 99 10/02/23 09:06 Oxygen Delivery Me thod Room Air 10/02/23 09:06 MDM - Extremity (Nontraumatic) Medical Decision Making XRs personal interpretation showing advanced chronic degenerative changes but no acute fractures/dislocations appreciated. She will be splinted and will have her follow up with PCP in a week or so. Will treat with NSAIDS/steroids. Medical Records I reviewed the patient's medical records. XR interpretation done by ED provider, pending radiology final review Discharge Plan Discharge Patient Disposition: Home Clinical Impression: Injury of hand, right Qualifiers: Encounter type: initial encounter Qualified Code(s): S69.91XA - Unspecified injury of right wrist, hand and finger(s), initial encounter Condition: Stable Prescriptions: New Celebrex 100 mg capsule 100 mg PO BID Qty: 14 0RF prednisone 10 mg tablet 40 mg PO DAILY 5 Days Qty: 20 0RF Discontinued methylprednisolone acetate [Depo-Medrol] 40 mg/mL suspension 40 mg Infiltration ONCE Qty: 1 0RF ibuprofen 800 mg tablet 800 mg PO Q8H PRN (Reason: pain) Qty: 30 0RF No Action cholecalciferol (vitamin D3) 25 mcg (1,000 unit) capsule 25 mcg PO DAILY diphenhydramine HCl [Allergy (diphenhydramine)] 25 mg capsule 25 mg PO TID PRN (Reason: Allergy Symptoms) carboxymethylcellulose sodium [Refresh Tears] 0.5 % drops 1 drp ophthalmic (eye) BID apple cider vinegar 1 caplet PO DAILY PRN (Reason: Indigestion) mecobalamin (vitamin B12) 1,000 mcg tablet,disintegrating 1,000 mcg sublingual DAILY Rx Instructions: place tablet under tongue and allow to dissolve for at least30 secs before swallowing clobetasol 0.05 % cream 1 applic topical DAILY Qty: 60 0RF acyclovir [Zovirax] 5 % ointment 1 applic topical 6XD 7 Days Qty: 15 2RF bupivacaine (PF) 0.25 % (2.5 mg/mL) solution 1 ml Infiltration ONCE Qty: 1 0RF Taltz Autoinjector (3 Pack) 80 mg/mL auto-injector See Rx Instructions SUBCUT .COMPLEX Qty: 3 5RF Rx Instructions: 1 injection q 4 weeks SUBCUT Otezla 30 mg tablet 30 mg PO BID Qty: 60 5RF tramadol 50 mg tablet 50 mg PO BID PRN (Reason: pain) Qty: 45 2RF amlodipine 10 mg tablet 10 mg PO DAILY Qty: 90 0RF metoprolol tartrate 25 mg tablet See Rx Instructions .ROUTE .COMPLEX Qty: 60 5RF Dose Instruction: TAKE ONE TABLET BY MOUTH TWICE A DAY Rx Instructions: TAKE ONE TABLET BY MOUTH TWICE A DAY trazodone 100 mg tablet See Rx Instructions .ROUTE .COMPLEX Qty: 30 5RF Dose Instruction: TAKE ONE TABLET BY MOUTH ONCE DAILY Rx Instructions: TAKE ONE TABLET BY MOUTH ONCE DAILY bupropion HCl 150 mg tablet sustained-release 12 hr See Rx Instructions .ROUTE .COMPLEX Qty: 90 1RF Dose Instruction: TAKE ONE TABLET BY MOUTH ONCE DAILY Rx Instructions: TAKE ONE TABLET BY MOUTH ONCE DAILY duloxetine 60 mg capsule,delayed release(DR/EC) See Rx Instructions .ROUTE .COMPLEX Qty: 90 1RF Dose Instruction: TAKE ONE CAPSULE BY MOUTH ONCE DAILY Rx Instructions: TAKE ONE CAPSULE BY MOUTH ONCE DAILY levothyroxine 75 mcg tablet See Rx Instructions .ROUTE .COMPLEX Qty: 90 3RF Dose Instruction: TAKE ONE TABLET BY MOUTH ONCE DAILY Rx Instructions: TAKE ONE TABLET BY MOUTH ONCE DAILY Discharge Orders: Discharge ED (Routine); Ordered 10/02/23 Ordered By: Charley Spangler Referrals: Yudith Mckeon CHURN TENDER [Primary Care Provider] - Activity Restrictions/Additional Instructions: As we discussed we will place you on anti-inflammatories and steroids to help with your pain and swelling. Continue bracing to help with support. Please follow-up with your primary care in a week or so if symptoms do not seem to be improving. Coding Level of Care Code ED Breed To Wean Production Technician for Nga Floyd
--- NOTE | 2023-10-02 09:15 | XR_ITS ---
WS: [email or web address] Exam: XR hand RT min 3V* [id number] Date/Time of Exam: 10/02/2023 9:15 AM Reason For Exam: pain/injury/swelling No acute fracture or dislocation. Moderately advanced degenerative changes in the IP joints. Marked D MEI at the CMC joint of the thumb. Old fracture deformity of the fifth metacarpal. Soft tissues are un remarkable. IMPRESSION1. Moderate degenerative changes. No fractures noted.
--- NOTE | 2023-10-02 09:15 | XR_ITS ---
WS: [email or web address] Exam: XR wrist RT min 3V* [id number] Date/Time of Exam: 10/02/2023 9:15 AM Reason For Exam: pain/injury No acute fracture or dislocation. Moderate degenerative narrowing of the joint compartment. Soft tiss ues are unremarkable. Deformity of the distal ulna may be secondary to prior fracture. There may be u lnar abutment of the proximal carpal row. IMPRESSION1. Degenerative changes. No fracture or dislocation.
[2023-10-02 09:43] VITALS: BP 142/65; PULSE 64; O2SAT 97
[2023-10-02 10:36] VITALS: BP 142/65; PULSE 64; TEMP 36.6; O2SAT 97
== END 2023-10-02 10:42 | disposition home or self-care (01) ==
PROVIDERS: Emergency Provider Physician Assistant; PCP Nurse Practitioner Family
DX: S69.91XA Unspecified injury of right wrist, hand and finger(s), initial encounter (principal); Z87.891 Personal history of nicotine dependence; X50.9XXA Other and unspecified overexertion or strenuous movements or postures, initial encounter
CPT/HCPCS: 73110; 73130; 99283

== ENCOUNTER → 2023-11-05 11:36 | Outpatient (BNVA) | payer MEDICARE, SELFPAY | PROVIDERS: PCP Nurse Practitioner Family; Visit Provider Nurse Practitioner Family | DX: N39.0 Urinary tract infection, site not specified (principal) | CPT/HCPCS: 81000; 87086 ==

== ENCOUNTER → 2023-12-06 14:19 | Outpatient (BNVA) | payer MEDICARE, SELFPAY | PROVIDERS: PCP Nurse Practitioner Family; Visit Provider Internal Medicine Rheumatology | DX: Z79.899 Other long term (current) drug therapy (principal); L40.50 Arthropathic psoriasis, unspecified; L40.0 Psoriasis vulgaris; Z71.85 Encounter for immunization safety counseling; M47.816 Spondylosis without myelopathy or radiculopathy, lumbar region; Z11.1 Encounter for screening for respiratory tuberculosis; Z11.59 Encounter for screening for other viral diseases | CPT/HCPCS: 36415; 80076; 82565; 85025; 85651; 86140; 99214 ==

== ENCOUNTER → 2023-12-20 14:31 | Outpatient (BNVA) | payer MEDICARE, SELFPAY | PROVIDERS: PCP Nurse Practitioner Family; Visit Provider Orthopaedic Surgery | DX: M48.062 Spinal stenosis, lumbar region with neurogenic claudication (principal) | CPT/HCPCS: 72100; 99214 ==

== ENCOUNTER → 2024-01-29 15:11 | Outpatient (BNVA) | payer MEDICARE, SELFPAY | PROVIDERS: PCP Nurse Practitioner Family; Visit Provider Internal Medicine Cardiovascular Disease | DX: R07.9 Chest pain, unspecified (principal); I25.10 Atherosclerotic heart disease of native coronary artery without angina pectoris; R06.09 Other forms of dyspnea; I10 Essential (primary) hypertension; Z87.891 Personal history of nicotine dependence; E78.5 Hyperlipidemia, unspecified; E11.9 Type 2 diabetes mellitus without complications; Z79.4 Long term (current) use of insulin; I49.8 Other specified cardiac arrhythmias | CPT/HCPCS: 93005; 99205 ==

== ENCOUNTER → 2024-02-18 13:24 | Outpatient (BNVA) | payer MEDICARE, SELFPAY | PROVIDERS: PCP Nurse Practitioner Family; Visit Provider Nurse Practitioner Family | DX: R50.9 Fever, unspecified (principal); J02.9 Acute pharyngitis, unspecified | CPT/HCPCS: 87070; 87400; 87426; 87880 ==

== ENCOUNTER → 2024-02-22 12:00 | Outpatient (BNVA) | payer MEDICARE, SELFPAY | PROVIDERS: PCP Nurse Practitioner Family; Visit Provider Nurse Practitioner Family | DX: I70.0 Atherosclerosis of aorta (principal) | CPT/HCPCS: 71046 ==

== ENCOUNTER 2024-02-29 10:17 | Outpatient (CLI) | payer MEDICARE, SELFPAY ==
--- NOTE | 2024-02-29 | ECG_ITS ---
[facility]: 2024-02[facility]29 Pat Name: Melissa Navarrete Department: Room: Gender: Female Hand Stone Polisher: : 1960 Requested By: Zak Ravi Order Number: [id number] Angeli MD: Zak Ravi M.D. Interpretive Statements Lung unchanged pre/post procedure; Intraprocedure shortess of breath; Symptoms resoled by discharge PROCEDURE: At the baseline, the EKG revealed normal sinus rhythm with a heart rate of 67 bpm. Nonspecific T wave changes. The baseline heart was 67 bpm with a blood pressue of 132/68 mm of Hg Lexiscan was infused over a period of 20 seconds. A total of 0.4 milligrams of Lexiscan was infused. The stress phase was continued for a total of 5 minutes. Heart rate at the end of the stress phase was 79 bpm with a blood pressure 129/71 mm of Hg. The EKG at the peak infusion revealed no significant changes. Sestamibi was injected 20 seconds after the Lexiscan infusion. Heart rate at the end of the recovery phase was 77 bpm with a blood pressure of 120/71 mm of Hg. CONCLUSION: 1. No significant EKG changes with the LexiScan infusion 2. No LexiScan induced chest pain or cardiac arrhythmia 3. Normal blood pressure and heart rate response 4. Sestamibi/sestamibi perfusion scan pending; see separate report. Electronically Signed On 03-02-2024 17:35:22 CONFECTIONERY LABORATORY MANAGER by Zak Ravi M.D. [email or web address]
[2024-02-29 10:35] VITALS: BMI 30.9
--- NOTE | 2024-02-29 11:10 | NMCV_ITS ---
NM loyd perf SPECT r/s* [id number] Melissa Navarrete Age: 63 Gender: F : 1960 Exam Date: 02/29/2024 11:34 Ordering Phys: Zak Ravi MD ([email or web address]) Technologist: MOR Dunlap Exam Location: [facility] Indications: STRESS TEST Please see separate stress test report in [facility] for full findings IMAGE PROTOCOL Rest/Stress 1 Lexiscan Day Radiopharmaceutical Dose (mCi) Administration Site Administered by Rest: Tc-99m 10.5 IV MOR Elias Sestamibi Stress:Tc-99m 32.9 IV MOR Dunlap Sestamibi Rest: 29-Feb-2024 60 Discovery 630 Stress: 29-Feb-2024 30 Discovery 630 0.4mg Lexiscan. Images obtained in supine and prone position. SPECT RESULTS Technical Quality: Good Raw Data Analysis: Adequate Image Corrections: No attenuation or motion correction applied Summed Stress Score: 1 Summed Rest Score: 2 Summed Difference Score: 0 PERFUSION FINDINGS A small area of slightly decreased tracer uptake was noted in the apical lateral segment. No significant reversibility was noted in this region FUNCTIONAL RESULTS (calculated via Gated SPECT) Stress Image LV EF (%): 83 Stress EDV (mL):42 TID: 0.59 Stress ESV (mL):7 FUNCTIONAL FINDINGS: Segmental wall motion analysis revealing no gross wall motion abnormalities IMPRESSIONS 1. Myocardial perfusion imaging revealing a small area of persistent decreased tracer uptake in the apical lateral region suggestive Myocard scarring versus attenuation artifact 2. Normal LV ejection fraction of 83%. 3. LV wall motion analysis revealing no gross wall motion abnormalities. 4. Normal LV volume Low probability for coronary ischemia, based on the above findings Dr Zak Ravi MD [facility] (Electronically Signed) Final Date: 03 March 2024 13:22 S
[2024-02-29] MEDS: regadenoson 0.4 Mg/5 ml Syringe IVP (12:11)
[2024-02-29 12:25] VITALS: BP 120/71; PULSE 76
== END 2024-02-29 10:18 | disposition home or self-care (01) ==
LOC: CDL 10:18
PROVIDERS: PCP Nurse Practitioner Family; Visit Provider Internal Medicine Cardiovascular Disease
DX: Z98.61 Coronary angioplasty status (principal); R06.02 Shortness of breath; I35.0 Nonrheumatic aortic (valve) stenosis; I34.81 Nonrheumatic mitral (valve) annulus calcification; R06.09 Other forms of dyspnea
CPT/HCPCS: 36415; 78452; 93017; 96374; A9500; J2785

== ENCOUNTER 2024-02-29 14:39 | Outpatient (CLI) | payer MEDICARE, SELFPAY ==
--- NOTE | 2024-02-29 15:00 | USCV_ITS ---
Melissa Navarrete Age: 63 Gender: F : 1960 Exam Date: 02/29/2024 15:02 Ordering Phys: Zak Ravi MD ([email or web address]) Technologist: CT Exam Location: [facility] [place] Indication: BP: 137 / 81 HR: 67 Rhythm: Sinus Technical Quality: Adequate MEASUREMENTS (Male / Female) Normal Values 2D ECHO LVOT Diameter 2.1 cm LV Ejection Fraction MOD 4C 67.9 % LV Ejection Fraction MOD 2C 82.4 % LV Ejection Fraction 2C AL 85.2 % LA Diameter 3.2 cm RA Systolic Volume 4C AL 33.3 ml RA Systolic Volume 4C MOD 31.4 ml LA Sys Volume AL 39.9 cm cubed LA Sys Volume Index AL 24.8 cm cubed/m squared Aorta at Sinotubular Diameter 2.2 cm IVC Diameter 1.7 cm M-MODE LA Ao Ratio MM 1.8 AV Cusp Separation MM 1.4 cm DOPPLER AV Peak Velocity 140.0 cm/s LVOT Peak Velocity 116.0 cm/s AV Area Cont Eq vti 3.4 cm squared AV Area Cont Eq pk 2.8 cm squared MV Peak Velocity 110.0 cm/s MV Area PHT 4.1 cm squared Mitral E to A Ratio 1.1 TR Peak Velocity 221.0 cm/s TR Peak Gradient 19.5 mmHg TR Mean Velocity 173.0 cm/s TR Mean Gradient 14.1 mmHg TR Velocity Time Integral 54.8 cm TV Peak E Velocity 64.0 cm/s PV Peak Velocity 118.0 cm/s FINDINGS Left Ventricle Normal left ventricular size and systolic function, EF 68%.. Mild left ventricular hypertrophy. No regional wall motion abnormalities. Right Ventricle The right ventricle is normal in size and function. Right Atrium The right atrium is normal in size. Left Atrium Normal left atrial size. Mitral Valve Thickened mitral valve. Trace mitral valve regurgitation. Aortic Valve Thickened aortic valve. Trace aortic valve regurgitation. Tricuspid Valve Normal gross abnormalities noted. Pulmonic Valve Mild pulmonary valve regurgitation. Pericardium Normal pericardium without effusion. Aorta Normal ascending aorta dimension. IVC Normal inferior vena cava. CONCLUSIONS Normal left ventricular size and systolic function, EF 68%.. Mild left ventricular hypertrophy. No regional wall motion abnormalities. Thickened mitral valve. Trace mitral valve regurgitation. Thickened aortic valve. Trace aortic valve regurgitation. Mild pulmonary valve regurgitation. Estimated PA pressure, possibly within normal limits-because of poor Doppler signals the calculations could be misleading There is no pericardial effusion. No similar previous studies are available for comparison Dr Zak Ravi MD [facility] (Electronically Signed) Final Date: 04 March 2024 19:46 S
== END 2024-02-29 14:40 | disposition home or self-care (01) ==
LOC: RAD 14:39
PROVIDERS: PCP Nurse Practitioner Family; Visit Provider Internal Medicine Cardiovascular Disease
DX: I35.0 Nonrheumatic aortic (valve) stenosis (principal); I34.81 Nonrheumatic mitral (valve) annulus calcification; R06.09 Other forms of dyspnea
CPT/HCPCS: 93306

== ENCOUNTER → 2024-03-05 10:19 | Outpatient (BNVA) | payer MEDICARE, SELFPAY | PROVIDERS: PCP Nurse Practitioner Family; Visit Provider Nurse Practitioner Family | DX: R05.3 Chronic cough (principal); R06.02 Shortness of breath | CPT/HCPCS: 71046; 80053; 85025; 86140 ==

== ENCOUNTER 2024-03-08 22:33 | Emergency (ER) | payer MEDICARE, SELFPAY ==
--- NOTE | 2024-03-08 22:35 | ECG_ITS ---
[facility] Date: 2024-03-08 Pat Name: Melissa Navarrete Department: Room: Gender: Female Wildfire Prevention Specialist: : 1960 Requested By: Catarino Arevalo Order Number: [id number] Angeli MD: Tim Zamora M.D. Measurements Intervals [place] Rate: 86 P: 49 OR: 144 QRS: -7 QRSD: 77 T: 33 QT: 368 QTc: 441 Interpretive Statements SINUS RHYTHM POSSIBLE LEFT ATRIAL ENLARGEMENT [-0.1mV P-WAVE IN V1/V2] MODERATE ST DEPRESSION [0.05+ mV ST DEPRESSION] Compared to ECG 01/29/2024 15:19:51 ST (T wave) deviation now present Electronically Signed On 03-09-2024 18:50:46 INTERLOCKING INSTALLER by Tim Zamora M.D. [email or web address]
[2024-03-08 22:50] VITALS: BP 140/73; PULSE 95; RESP 23; TEMP 36.8; O2SAT 98; BMI 32.5
--- NOTE | 2024-03-08 23:42 | CTR_ITS ---
PROCEDURE INFORMATION: Exam: CT Chest Without Contrast; Diagnostic Exam date and time: 03/08/2024 11:57 PM Age: 63 years old Clinical indication: Patient HX: Persistent non productive cough with chest discomfort over the last two months despite multiple abx treatments. ; Additional info: Cough cp TECHNIQUE: Imaging protocol: Diagnostic computed tomography of the chest without contrast. Radiation optimization: All CT scans at this facility use at least one of these dose optimization techniques: automated exposure control; mA and/or kV adjustment per patient size (includes targeted exams where dose is matched to clinical indication); or iterative reconstruction. COMPARISON: CT angio chest w abd pel w con 06/16/2021 12:44 AM RADIATION DOSE METRICS: Total DLP (mGy-cm): 264.37 FINDINGS: Lungs: Right middle lobe noncalcified nodules measuring 7 x 6 x 9 mm (series 4, images 28-29) with adjacent micronodules and 8 x 6 mm (previously 6 x 5 mm) (series 4, image 33). 4 x 4 mm (previously 2 x 2 mm) left upper lobe noncalcified nodule (series 4, image 16). Right middle lobe perifissural nodule. Pleural spaces: Unremarkable. No pneumothorax. No pleural effusion. Heart: Unremarkable. No cardiomegaly. No pericardial effusion. Coronary arteries: Moderate atherosclerotic changes of the coronary arteries. Lymph nodes: Unremarkable. No enlarged lymph nodes. Vasculature: Mild atherosclerotic changes of the aorta and its major branches. Bones/joints: Right shoulder arthroplasty. Multilevel spondylosis. Soft tissues: Unremarkable. CT/CT chest wo con [id number] IMPRESSION: Enlarging and new nonspecific pulmonary nodules in the right middle and left upper lobes. For patients at low risk (minimal or absent history of smoking and of other known risk factors), recommend CT Chest at 3-6 months, then consider CT Chest at 18-24 months. For patients at high risk (history of smoking or of other known risk factors), recommend CT Chest at 3-6 months, then CT Chest at 18-24 months. (Reference: Amilcar) REFERENCES: juan Lazaro al. Guidelines for Management of Incidental Pulmonary Nodules Detected on CT Images: From the Fleischner Society 2017. Radiology. 2017;284(1):228-243.
--- NOTE | 2024-03-08 23:42 | ECG_ITS ---
[facility]24[facility]08 Pat Name: Melissa Navarrete Department: Room: Gender: Female Phlebotomy Support Tech: : 1960 Requested By: Anita De Souza Order Number: [id number] Angeli MD: Tim Zamora M.D. Measurements Intervals [place] Rate: 71 P: 52 TN: 153 QRS: -5 QRSD: 75 T: 18 QT: 365 QTc: 398 Interpretive Statements SINUS RHYTHM NONSPECIFIC T-WAVE ABNORMALITY Compared to ECG 03/08/2024 22:47:46 T-wave abnormality now present ST (T wave) deviation no longer present Electronically Signed On 03-09-2024 18:50:42 [employer] WORK[employer] by Tim Zamora M.D. [id number]
[2024-03-08 23:56] LABS: Basophils # 0.1 10^3/uL (0.0-0.1); Basophils % 0.5 %; Eosinophils # 0.4 10^3/uL (0.0-0.8); Eosinophils % 4.4 %; Hematocrit 40.7 % (36-47); Lymphocytes # 2.4 10^3/uL (0.8-4.8); Lymphocytes % 23.9 %; Mean Corpuscular HGB Conc 32.9 g/dL (30-55); Mean Platelet Volume 9.8 fL (7.4-10.4); Monocytes # 0.6 10^3/uL (0.2-0.9); Monocytes % 6.1 %; Neutrophils # 6.39 10^3/uL (1.8-7.7); Neutrophils % 64.8 %; Nucleated Red Blood Cells % 0 %; Platelet Count 334 10^3/cmm (157-399); Red Blood Count 4.79 10^6/uL (3.85-5.65); White Blood Count 9.86 10^3/uL (3.29-11.43)
[2024-03-09 00:27] LABS: Troponin(5th) Baseline 7 ng/L (0-10)
--- NOTE | 2024-03-09 00:32 | ED_ITS ---
HPI - SOB/Dyspnea 2 General: Chief Complaint: Shortness of Breath/Dyspnea Stated Complaint: SOB holding fluids n/v blood indigestion Time Seen by Provider: 03/08/24 23:09 History of Present Illness: HPI Narrative: Patient is a 63-year-old female who presents to the emergency department with cough x 9 weeks. Patient has been previously seen by her primary care doctor on numerous occasions and has undergone repeated antibiotic administration and XR imaging of her chest. Patient reports that despite this she has had no improvement in her terms. She reports malaise and fatigue. She denies fevers She reports intermittent indigestion which brings on the cough and is worse at night. She reports recent cardiac workup. She denies chest pain but gastric reflux Associated symptoms: Reports fever(s) and nausea (at times); Deny abdominal pain, chest pain, dizziness or vomiting Related Data Home Medications Medication Instructions Recorded Confirmed carboxymethylcellulose sodium 0.5 1 drp ophthalmic (eye) BID 11/08/20 03/03/24 % eye drops (Refresh Tears) diphenhydramine HCl 25 mg capsule 25 mg PO TID PRN Allergy Symptoms 11/08/20 03/03/24 (Allergy (diphenhydramine)) mecobalamin (vitamin B12) 1,000 1,000 mcg sublingual DAILY 12/17/20 03/03/24 mcg disintegrating tablet,sublingual apple cider vinegar 1 caplet PO DAILY PRN Indigestion 05/16/21 03/03/24 tramadol 50 mg tablet 50 mg PO TID PRN pain 12/20/23 03/03/24 calcium 500 mg (as tab PO 01/29/24 03/03/24 carbonate)-vitamin D3 200 unit-vit K2 90 mcg tablet Previous Rx's Medication Instructions Recorded clobetasol 0.05 % topical cream 1 applic topical DAILY #60 grams 02/01/21 acyclovir 5 % topical ointment 1 applic topical 6XD 7 days #15 07/17/22 (Zovirax) grams metoprolol tartrate 25 mg tablet See Rx Instructions .Route 03/12/23 .COMPLEX #60 tabs bupropion HCl 150 mg tablet,12 hr See Rx Instructions .Route 06/18/23 sustained-release .COMPLEX #90 tabs levothyroxine 75 mcg tablet See Rx Instructions .Route 09/25/23 .COMPLEX #90 tabs nitrofurantoin 100 mg PO DAILY #90 caps 11/05/23 monohydrate/macrocrystals 100 mg capsule (Macrobid) duloxetine 60 mg capsule,delayed See Rx Instructions .Route 12/03/23 release .COMPLEX #90 caps apremilast 30 mg tablet (Otezla) 30 mg PO BID #60 tabs 12/06/23 ixekizumab 80 mg/mL subcutaneous See Rx Instructions SUBCUT 12/06/23 auto-injector (Fanzotz Autoinjector .COMPLEX #3 mL (3 Pack)) amlodipine 10 mg tablet 10 mg PO DAILY #90 tabs 12/19/23 trazodone 100 mg tablet See Rx Instructions .Route 12/28/23 .COMPLEX #30 tabs promethazine-DM 6.25 mg-15 mg/5 mL 5 ml PO Q6H PRN cough #118 mL 03/05/24 oral syrup benzonatate 100 mg capsule 100 mg PO BID PRN cough #14 caps 03/09/24 pantoprazole 40 mg tablet,delayed 40 mg PO DAILY 4 weeks #30 tabs 03/09/24 release (Protonix) Allergies Allergy/AdvReac Type Severity Reaction Status Date / Time cephalexin Allergy Intermediate ALGY-Rash Verified 03/08/24 22:38 adalimumab [From Humira] Allergy ALGY-Hives Verified 03/08/24 22:38 naproxen [From Naprosyn] Allergy ALGY-Hives Verified 03/08/24 22:38 prednisone AdvReac Severe Avascular Verified 03/08/24 22:38 Necrosis Review of Systems 2 Const: Reports: fever(s), chills, body aches, change in appetite, fatigue and malaise Eyes: Reports: eye redness ENMT: Reports: throat pain; Denies: ear or mastoid pain Card: Denies: chest pain, irregular heart rhythm or edema Resp: Reports: dyspnea and non-productive cough; Denies: wheezing GI: Reports: nausea (at times); Denies: abdominal pain, vomiting, diarrhea or constipation : Denies: flank pain Skin/Breast: Denies: rash or new lesions Neuro: Denies: headache(s), dizziness or confusion Psych: Denies: anxiety or depression PFSH ED 2 PFSH: Medical History Immunization counseling High risk medication use Plaque psoriasis Psoriasis Chronic cystitis Urolithiasis Hypothyroidism Fibromyalgia Surgical History History of abdominal surgery EMBRYOTIC MASS History of knee surgery History of shoulder replacement History of rotator cuff surgery History of back surgery History of appendectomy Family History Father Diabetes Hyperlipidemia Mother , AT AGE 83 Cancer Social History Smoking and tobacco/nicotine status: never used tobacco/nicotine Alcohol intake: current Alcohol intake frequency: holidays/special occasions only Substance/Drug Use: never Marital status: Current occupational status: disabled Physical Exam 2 Const: COMMON NORMALS: no acute distress, patient oriented x3 and alert G ENERAL APPEARANCE: cooperative ORIENTATION/CONSCIOUSNESS: Yes awake, Yes oriented to person, Yes oriented to place and Yes oriented to time HENMT: COMMON NORMALS: normocephalic and atraumatic HEAD & SCALP: n ormocephalic and atraumatic FACE & SINUS: normal facial exam MOUTH: Normal oral and palatal mucosa present THROAT: posterior oropharynx normal Eye: COMMON NORMALS: Equal, round and reactive pupils present, EOMs intact bilaterally, conjunctivae normal and no scleral icterus GENERAL EYE: a ppearance normal, both eyes and all related structures ALIGNMENT: Yes alignment normal PERIORBITAL: periorbital findings normal CONJUNCTIVA: Yes conjunctivae normal PUPIL: Yes Equal, round and reactive pupils present Neck/C-Spine: COMMON NORMALS: full ROM GENERAL: Yes normal visual inspection Lymph: LYMPHATIC: no lymphadenopathy noted Chest: COMMONS NORMALS: normal inspection of the chest Breast/axilla inspection: Yes no chest deformity, asymmetry, normal contours, no nodules, masses, tenderness Resp: COMMON NORMALS: normal respiratory effort, No retractions, No use of accessory muscles and clear to auscultation bilaterally EFFORT & INSPECTION: Yes able to speak in complete sentences and Yes symmetric chest movement A USCULTATION: clear to auscultation bilaterally Cardio: COMMON NORMALS: regular rate, regular rhythm and Peripheral pulses 2+ throughout RATE: regular rate RHYTHM: regular rhythm PERIPHERAL PULSES: Peripheral pulses 2+ throughout GI: COMMON NORMALS: Normal to inspection, nondistended, normoactive bowel sounds present, Soft to palpation, non-tender and No hepatosplenomegaly present INSPECTION: Yes normal to inspection AUSCULTATION: Yes normoactive bowel sounds PALPATION: Yes Soft to palpation and Yes No hepatosplenomegaly present RECTAL EXAM: deferred Extremity: COMMON NORMALS: normal to inspection GENERAL: Yes normal exam except as noted Neuro: COMMON NORMALS: patient oriented x3 SENSORIUM/ORIENTATION: Yes alert, Yes oriented to person, Yes oriented to place and Yes oriented to time CRANIAL NERVES: Yes CN normal except as noted Psych: COMMON NORMALS: mental status grossly normal, Normal thought process present, cooperative, activity/motor behavior normal, denies homicidal ideation and denies suicidal ideation THOUGHT PROCESS: Normal thought process present Skin: COMMON NORMALS: no rashes or lesions noted, no wounds and turgor normal GENERAL SKIN EXAM: no rashes or lesions noted and turgor normal Course 2 Vital Signs: Vital signs: Vital Signs Temperature 98.2 F 03/08/24 22:50 Pulse Rate 81 03/09/24 00:42 Respiratory Rate 20 H 03/09/24 00:42 Blood Pressure 127/89 03/09/24 00:42 Pulse Oximetry 98 03/09/24 00:42 Oxygen Delivery Me thod Room Air 03/09/24 00:42 MDM - SOB/Dyspnea Medical Decision Making Patient was evaluated this evening with complaints of cough, indigestion and shortness of breath for the last 9 weeks. In the emergency department today we evaluated her for cardiac abnormality as well as respiratory. She underwent a CT chest which revealed multiple pulmonary nodules. Her laboratory evaluation revealed no leukocytosis, anemias, electrolyte abnormalities, elevation in troponin, organ dysfunction such as liver or renal. She also underwent EKG at 2247 and 2350. Both of which revealed sinus rhythm with a ventricular rate of 71 beats a minute and a QTc of 388. No ectopy, ST elevation or abnormal T wave inversion. I treated her cough with Tessalon Perles and I also gave her Protonix. Symptoms improved I discussed the multiple differentials that we were evaluating for. She has a very low heart score?3 points which places her at a low risk. Other possibilities include bronchitis but CT chest reveals no evidence of this. Possible gastric esophageal reflux disorder since she has frequent heartburn that has not been treated and seems to bring on the cough. I did discharge her home with Protonix and Silvina Arreola. Have advised her to follow-up with her primary care doctor. She needs to call Sunday to get an appointment for further evaluation. Furthermore she is going to need serial evaluation for the pulmonary nodules that were visualized on today's CT chest. Patient verbalizes understanding and all questions were answered Lab Data 03/08/24 23:51 03/08/24 23:51 Labs/Radiology: Radiology Impressions Chest CT 03/08/24 23:42 IMPRESSION: Enlarging and new nonspecific pulmonary nodules in the right middle and left upper lobes. For patients at low risk (minimal or absent history of smoking and of other known risk factors), recommend CT Chest at 3-6 months, then consider CT Chest at 18-24 months. For patients at high risk (history of smoking or of other known risk factors), recommend CT Chest at 3-6 months, then CT Chest at 18-24 months. (Reference: Amilcar) REFERENCES: Amilcar Lau, et al. Guidelines for Management of Incidental Pulmonary Nodules Detected on CT Images: From the Fleischner Society 2017. Radiology. 2017;284(1):228-243. Laboratory Results WBC 9.86 10^3/uL (3.29-11.43) 03/08/24 23:51 RBC 4.79 10^6/uL (3.85-5.65) 03/08/24 23:51 Hgb 13.40 g/dL (11.27-16.99) 03/08/24 23:51 Hct 40.7 % (36-47) 03/08/24 23:51 MCV 85.0 fl (85-98) 03/08/24 23:51 MCH 28.0 pg (27-33) 03/08/24 23:51 MCHC 32.9 g/dL (30-55) 03/08/24 23:51 RDW 14.0 % (12.1-15.1) 03/08/24 23:51 Plt Count 334 10^3/cmm (157-399) 03/08/24 23:51 MPV 9.8 fL (7.4-10.4) 03/08/24 23:51 Neut % (Auto) 64.8 % 03/08/24 23:51 Lymph % (Auto) 23.9 % 03/08/24 23:51 [place] % (Auto) 6.1 % 03/08/24 23:51 Eos % (Auto) 4.4 % 03/08/24 23:51 Baso % (Auto) 0.5 % 03/08/24 23:51 Neut # (Auto) 6.39 10^3/uL (1.8-7.7) 03/08/24 23:51 Lymph # (Auto) 2.4 10^3/uL (0.8-4.8) 03/08/24 23:51 [place] # (Auto) 0.6 10^3/uL (0.2-0.9) 03/08/24 23:51 Eos # (Auto) 0.4 10^3/uL (0.0-0.8) 03/08/24 23:51 Baso # (Auto) 0.1 10^3/uL (0.0-0.1) 03/08/24 23:51 Nucleated RBC % (auto) 0 % 03/08/24 23:51 Nucleated RBCs # 0.0 /100WBC 03/08/24 23:51 Sodium 140 mmol/L (136-145) 03/08/24 23:51 Potassium 3.5 mmol/L (3.5-5.1) 03/08/24 23:51 Chloride 104 mmol/L (98-107) 03/08/24 23:51 Carbon Dioxide 21 mmol/L (22-29) L 03/08/24 23:51 Anion Gap 18.5 (5-19) 03/08/24 23:51 BUN 6 mg/dL (8-23) L 03/08/24 23:51 Creatinine 0.9 mg/dL (0.5-0.9) 03/08/24 23:51 GFR Calculation 62.8 mL/min (90-130) L 03/08/24 23:51 Glucose 142 mg/dL (65-115) H 03/08/24 23:51 Calculated Osmolality 290 mOsm/kg (285-295) 03/08/24 23:51 Calcium 9.6 mg/dL (8.5-10.5) 03/08/24 23:51 Total Bilirubin 0.2 mg/dL (0.15-1.2) 03/08/24 23:51 AST 17 U/L (0-32) 03/08/24 23:51 ALT 16 U/L (0-33) 03/08/24 23:51 Alkaline Phosphatase 90 U/L (35-105) 03/08/24 23:51 Troponin T Baseline 7 ng/L (0-10) 03/08/24 23:51 NT-Pro-B Natriuret Pep 363 pg/mL (0-125) H 03/08/24 23:51 Total Protein 8.2 g/dL (6.6-8.7) 03/08/24 23:51 Albumin 4.3 g/dL (3.5-5.2) 03/08/24 23:51 Globulin 3.9 g/dL (1.3-4.6) 03/08/24 23:51 All radiology interpretation(s) finalized by discharge Discharge Plan Discharge Patient Disposition: Home Clinical Impression: Chronic cough, GERD (gastroesophageal reflux disease), Incidental pulmonary nodule Condition: Stable Prescriptions: New benzonatate 100 mg capsule 100 mg PO BID PRN (Reason: cough) Qty: 14 0RF pantoprazole [Protonix] 40 mg tablet,delayed release (DR/EC) 40 mg PO DAILY 28 Days Qty: 30 0RF No Action diphenhydramine HCl [Allergy (diphenhydramine)] 25 mg capsule 25 mg PO TID PRN (Reason: Allergy Symptoms) carboxymethylcellulose sodium [Refresh Tears] 0.5 % drops 1 drp ophthalmic (eye) BID apple cider vinegar 1 caplet PO DAILY PRN (Reason: Indigestion) mecobalamin (vitamin B12) 1,000 mcg tablet,disintegrating 1,000 mcg sublingual DAILY Rx Instructions: place tablet under tongue and allow to dissolve for at least30 secs before swallowing clobetasol 0.05 % cream 1 applic topical DAILY Qty: 60 0RF acyclovir [Zovirax] 5 % ointment 1 applic topical 6XD 7 Days Qty: 15 2RF bupivacaine (PF) 0.25 % (2.5 mg/mL) solution 1 ml Infiltration ONCE Qty: 1 0RF Otezla 30 mg tablet 30 mg PO BID Qty: 60 5RF Taltz Autoinjector (3 Pack) 80 mg/mL auto-injector See Rx Instructions SUBCUT .COMPLEX Qty: 3 5RF Rx Instructions: 1 injection q 4 weeks SUBCUT nitrofurantoin monohyd/m-cryst [Macrobid] 100 mg capsule 100 mg PO DAILY Qty: 90 3RF Rx Instructions: must administer with a meal/food tramadol 50 mg tablet 50 mg PO TID PRN (Reason: pain) calcium carb-vitamin D3-vit K2 500 mg calcium- 200 unit-90 mcg tablet PO promethazine-DM 6.25-15 mg/5 mL syrup 5 ml PO Q6H PRN (Reason: cough) Qty: 118 0RF metoprolol tartrate 25 mg tablet See Rx Instructions .ROUTE .COMPLEX Qty: 60 5RF Dose Instruction: TAKE ONE TABLET BY MOUTH TWICE A DAY Rx Instructions: TAKE ONE TABLET BY MOUTH TWICE A DAY bupropion HCl 150 mg tablet sustained-release 12 hr See Rx Instructions .ROUTE .COMPLEX Qty: 90 1RF Dose Instruction: TAKE ONE TABLET BY MOUTH ONCE DAILY Rx Instructions: TAKE ONE TABLET BY MOUTH ONCE DAILY levothyroxine 75 mcg tablet See Rx Instructions .ROUTE .COMPLEX Qty: 90 3RF Dose Instruction: TAKE ONE TABLET BY MOUTH ONCE DAILY Rx Instructions: TAKE ONE TABLET BY MOUTH ONCE DAILY duloxetine 60 mg capsule,delayed release(DR/EC) See Rx Instructions .ROUTE .COMPLEX Qty: 90 1RF Dose Instruction: TAKE ONE CAPSULE BY MOUTH ONCE DAILY Rx Instructions: TAKE ONE CAPSULE BY MOUTH ONCE DAILY amlodipine 10 mg tablet 10 mg PO DAILY Qty: 90 0RF trazodone 100 mg tablet See Rx Instructions .ROUTE .COMPLEX Qty: 30 5RF Dose Instruction: TAKE ONE TABLET BY MOUTH ONCE DAILY Rx Instructions: TAKE ONE TABLET BY MOUTH ONCE DAILY Discharge Orders: Discharge ED (Routine); Ordered 03/09/24 Ordered By: Anita Trevizo Referrals: Yudith Mckeon NP [Primary Care Provider] - Discharge Diet: Advance as tolerated Discharge Activity: Resume usual activity Patient Instructions: Opioid Safety, Pain Management, Diet for Stomach Ulcers and Gastritis (ED), GERD (Gastroesophageal Reflux Disease) (ED) Activity Restrictions/Additional Instructions: Please follow-up with your primary care doctor regarding pulmonary nodules and your chronic cough. Please take the medications as provided as prescribed Please return to the emergency department for new, concerning, worsening symptoms Coding Level of Care Code ED Cement Finisher Apprentice for Nga Floyd
[2024-03-09 00:36] LABS: Alanine Aminotransferase 16 U/L (0-33); Albumin Level 4.3 g/dL (3.5-5.2); Alkaline Phosphatase 90 U/L (35-105); Anion Gap 18.5 (5-19); Aspartate Amino Transferase 17 U/L (0-32); Blood Urea Nitrogen 6 mg/dL (8-23); Calcium 9.6 mg/dL (8.5-10.5); Carbon Dioxide 21 mmol/L (22-29); Chloride 104 mmol/L (98-107); Creatinine Clr Calc Pharmacy 64.7053; Globulin 3.9 g/dL (1.3-4.6); Glomerular Filtration Rate 62.8 mL/min (90-130); Glucose 142 mg/dL (65-115); NT Pro B Type Natriuretic Pept 363 pg/mL (0-125); Osmolality Calculated 290 mOsm/kg (285-295); Potassium 3.5 mmol/L (3.5-5.1); Sodium 140 mmol/L (136-145); Total Bilirubin 0.2 mg/dL (0.15-1.2); Total Protein 8.2 g/dL (6.6-8.7)
[2024-03-09] MEDS: pantoprazole DR 40 mg Tablet PO (00:41)
[2024-03-09] MEDS: benzonatate 100 mg Capsule PO (00:41)
[2024-03-09 00:42] VITALS: BP 127/89; PULSE 81; RESP 20; O2SAT 98
[2024-03-09 01:16] VITALS: BP 137/78; PULSE 78; O2SAT 96
== END 2024-03-09 01:17 | disposition home or self-care (01) ==
PROVIDERS: Emergency Provider Nurse Practitioner; PCP Nurse Practitioner Family
DX: R05.9 Cough, unspecified (principal); K21.9 Gastro-esophageal reflux disease without esophagitis; R91.1 Solitary pulmonary nodule
CPT/HCPCS: 36415; 71250; 80053; 83880; 84484; 85025; 93005; 99285

== ENCOUNTER → 2024-03-18 13:00 | Outpatient (BNVA) | payer MEDICARE, SELFPAY | PROVIDERS: PCP Nurse Practitioner Family; Visit Provider Family Medicine | DX: E03.9 Hypothyroidism, unspecified (principal); E83.42 Hypomagnesemia | CPT/HCPCS: 83735; 84439; 84443; 85651; 86140 ==

== ENCOUNTER → 2024-04-29 10:25 | Outpatient (BNVA) | payer MEDICARE, SELFPAY | PROVIDERS: PCP Nurse Practitioner Family; Visit Provider Nurse Practitioner Family | DX: I25.10 Atherosclerotic heart disease of native coronary artery without angina pectoris (principal); I10 Essential (primary) hypertension; R06.09 Other forms of dyspnea; Z87.891 Personal history of nicotine dependence; E78.5 Hyperlipidemia, unspecified; E11.9 Type 2 diabetes mellitus without complications; Z79.4 Long term (current) use of insulin; R07.89 Other chest pain | CPT/HCPCS: 36415; 80061; 83880; 99213 ==

== ENCOUNTER → 2024-06-02 13:54 | Outpatient (BNVA) | payer MEDICARE, SELFPAY | PROVIDERS: PCP Nurse Practitioner Family; Visit Provider Internal Medicine Rheumatology | DX: L40.0 Psoriasis vulgaris (principal); Z79.899 Other long term (current) drug therapy; Z71.85 Encounter for immunization safety counseling; L40.50 Arthropathic psoriasis, unspecified | CPT/HCPCS: 99214 ==

== ENCOUNTER 2024-07-03 12:08 | Outpatient (CLI) | payer MEDICARE, SELFPAY ==
--- NOTE | 2024-07-03 12:30 | CT_ITS ---
WS: [id number] LDCT LUNG CANCER SCREENING TECHNIQUE: Noncontrast CT of the chest with coronal and sagittal reformatted images. CLINICAL INFORMATION: Z87.891 - Personal history of nicotine dependence COMPARISON: 03/08/2024 DLP: 50.32 mGy.cm DIvol: Mean CTDIvol: 1.00 (mGy) All CT scans at [facility] use at least one of these dose optimization techniques: automated exposure control; mA and/or kV adjustment per patient size (includes targeted exams where dose is matched to clinical indication); or iterative reconstruction. FINDINGS: Again seen are multiple pulmonary nodules in the RIGHT upper lobe and RIGHT middle lobe the largest measuring 7 mm. These appear relatively stable compared to 03/08/2024. These are new since 2021. Recommend 6-month follow-up. 4 mm nodule LEFT upper lobe along the aortic arch. No new suspicious pulmonary nodules. Chronic emphysematous changes. Bibasilar atelectasis. RIGHT TSA degrades some images. Aortic calcification. Normal caliber thoracic aorta. Coronary calcification. Adrenal glands are normal. Mild thoracic curve. A few enlarged RIGHT peribronchial lymph nodes largest measuring 9 mm. These appear stable compared to previous. CT/CT lung screening [id number] IMPRESSION: LUNG-RADS: 3-Probably Benign FOLLOW UP: 6 Month LDCT
== END 2024-07-03 12:09 | disposition home or self-care (01) ==
LOC: RAD 12:09
PROVIDERS: PCP Family Medicine; Visit Provider Family Medicine
DX: Z12.2 Encounter for screening for malignant neoplasm of respiratory organs (principal); Z87.891 Personal history of nicotine dependence; R91.8 Other nonspecific abnormal finding of lung field; R93.89 Abnormal findings on diagnostic imaging of other specified body structures; J43.8 Other emphysema; J98.11 Atelectasis; I70.0 Atherosclerosis of aorta; I25.10 Atherosclerotic heart disease of native coronary artery without angina pectoris; M40.294 Other kyphosis, thoracic region; R59.0 Localized enlarged lymph nodes
CPT/HCPCS: 71271

== ENCOUNTER → 2024-07-24 09:00 | Outpatient (BNVA) | payer MEDICARE, SELFPAY | PROVIDERS: PCP Family Medicine; Visit Provider Family Medicine | DX: I10 Essential (primary) hypertension (principal); E11.9 Type 2 diabetes mellitus without complications; M54.2 Cervicalgia; G89.29 Other chronic pain; L40.0 Psoriasis vulgaris; E55.9 Vitamin D deficiency, unspecified; E78.5 Hyperlipidemia, unspecified; E03.9 Hypothyroidism, unspecified; R45.89 Other symptoms and signs involving emotional state; R79.89 Other specified abnormal findings of blood chemistry; Z79.4 Long term (current) use of insulin | CPT/HCPCS: 80053; 80061; 82306; 82607; 82746; 84439; 84443; 84550; 85025; 85651; 86140; 86431 ==

== ENCOUNTER → 2024-09-25 14:15 | Outpatient (BNVA) | payer MEDICARE, SELFPAY | PROVIDERS: PCP Family Medicine; Visit Provider Nurse Practitioner Family | DX: L40.0 Psoriasis vulgaris (principal); Z79.899 Other long term (current) drug therapy; L40.59 Other psoriatic arthropathy; L40.8 Other psoriasis; L81.4 Other melanin hyperpigmentation; Z08 Encounter for follow-up examination after completed treatment for malignant neoplasm; Z85.828 Personal history of other malignant neoplasm of skin; L30.9 Dermatitis, unspecified | CPT/HCPCS: 11104; 99214 ==

== ENCOUNTER → 2024-09-29 12:40 | Outpatient (BNVA) | payer MEDICARE, SELFPAY | PROVIDERS: PCP Nurse Practitioner Family; Visit Provider Internal Medicine Rheumatology | DX: L40.0 Psoriasis vulgaris (principal); Z79.899 Other long term (current) drug therapy; Z71.85 Encounter for immunization safety counseling; L40.50 Arthropathic psoriasis, unspecified; E55.9 Vitamin D deficiency, unspecified | CPT/HCPCS: 36415; 80076; 82306; 82565; 85025; 86140; 86480; 99214 ==

== ENCOUNTER → 2024-10-08 15:19 | Outpatient (BNVA) | payer MEDICARE, SELFPAY | PROVIDERS: PCP Nurse Practitioner Family; Visit Provider Nurse Practitioner Family | DX: R30.9 Painful micturition, unspecified (principal) | CPT/HCPCS: 81000 ==

== ENCOUNTER 2024-10-29 14:01 | Outpatient (CLI) | payer MEDICARE, SELFPAY ==
[2024-10-29 15:20] LABS: Alanine Aminotransferase 80 U/L (0-33); Albumin Level 4.1 g/dL (3.5-5.2); Alkaline Phosphatase 65 U/L (35-105); Aspartate Amino Transferase 66 U/L (0-32); Globulin 3.6 g/dL (1.3-4.6); Total Protein 7.7 g/dL (6.6-8.7)
== END 2024-10-29 14:02 | disposition home or self-care (01) ==
LOC: LAB 14:04
PROVIDERS: PCP Nurse Practitioner Family; Visit Provider Internal Medicine Rheumatology
DX: R74.8 Abnormal levels of other serum enzymes (principal)
CPT/HCPCS: 36415; 80076

== ENCOUNTER 2024-12-05 11:07 | Outpatient (CLI) | payer MEDICARE, SELFPAY ==
--- NOTE | 2024-12-05 11:15 | US_ITS ---
WS: [id number] RIGHT UPPER QUADRANT ULTRASOUND HISTORY: K76.0 - Fatty (change of) liver, not elsewhere classified COMPARISON: None available. Liver: 15.1 cm in length. Normal size liver and echogenicity. No bile duct dilatation or mass. Portal Vein: Normal hepatopetal flow with monophasic waveform. Gallbladder: Normally distended gallbladder with no stones or wall thickening. CBD: 0.4 cm Pancreas: Normal size and echogenicity. Right kidney: 8.8 cm in length. Normal size and echogenicity. No hydronephrosis or mass. Aorta and IVC: Unremarkable abdominal aorta and IVC. No ascites. US/US liver [id number] IMPRESSION: Normal right upper quadrant ultrasound.
== END 2024-12-05 11:08 | disposition home or self-care (01) ==
PROVIDERS: Family Provider Family Medicine; PCP Family Medicine; Visit Provider Internal Medicine Rheumatology
DX: K76.0 Fatty (change of) liver, not elsewhere classified (principal)
CPT/HCPCS: 76705

== ENCOUNTER → 2024-12-11 13:41 | Outpatient (BNVA) | payer MEDICARE, SELFPAY | PROVIDERS: Family Provider Family Medicine; PCP Family Medicine; Visit Provider Family Medicine | DX: N39.0 Urinary tract infection, site not specified (principal); R31.9 Hematuria, unspecified | CPT/HCPCS: 81000; 87086 ==

== ENCOUNTER → 2025-02-10 14:35 | Outpatient (BNVA) | payer MEDICARE, SELFPAY | PROVIDERS: Family Provider Family Medicine; PCP Family Medicine; Visit Provider Internal Medicine Rheumatology | DX: L40.0 Psoriasis vulgaris (principal); Z79.899 Other long term (current) drug therapy; Z71.85 Encounter for immunization safety counseling; L40.50 Arthropathic psoriasis, unspecified | CPT/HCPCS: 36415; 80076; 82565; 85025; 85651; 86140; 99214 ==

== ENCOUNTER → 2025-03-11 10:45 | Outpatient (BNVA) | payer MEDICARE, SELFPAY | PROVIDERS: Family Provider Family Medicine; PCP Family Medicine; Visit Provider Family Medicine | DX: E55.9 Vitamin D deficiency, unspecified (principal); I10 Essential (primary) hypertension; E78.5 Hyperlipidemia, unspecified; E03.9 Hypothyroidism, unspecified; L40.0 Psoriasis vulgaris; M25.562 Pain in left knee; M25.561 Pain in right knee; G89.29 Other chronic pain; R45.89 Other symptoms and signs involving emotional state; R79.89 Other specified abnormal findings of blood chemistry | CPT/HCPCS: 80053; 80061; 82306; 82607; 82728; 82746; 83540; 83735; 84439; 84443; 85025 ==